=== PATIENT | female | born 1960 | race Caucasian/White ===

== ENCOUNTER 2017-05-28 20:27 | Observation (INO) | payer MEDICARE, OTHER ==
[~2017-05-28] VITALS: Ht 165.1 cm; Wt 56.0 kg
[~2017-05-28 20:27] MED LIST: ALBU6.7H INH; CEFU1TAB20 OR; DOXY100T PO; GUAI400T8 PO; HYDR200T42 PO; LISI-363 PO; MEDR4PAK3 PO; PRED5TAB PO; TRAM50TA PO
[2017-05-28 20:30] VITALS: BP 162/78; PULSE 77; RESP 16; TEMP 98.7; O2SAT 99
[2017-05-28] MEDS ORDERED: HYDR200T3 PO (20:52)
[2017-05-28] MEDS ORDERED: GABA300C5 PO (20:52)
[2017-05-28] MEDS ORDERED: DICL50TA3 PO (20:52)
[2017-05-28] MEDS ORDERED: BACT800T5 PO (20:52)
[2017-05-28] MEDS ORDERED: ESCI20TA PO (20:52)
[2017-05-28] MEDS ORDERED: LISI10TA3 PO (20:52)
--- NOTE | 2017-05-28 20:57 | PD ---
HPI Chief Complaint: Abnormal Results Time Seen by Provider: 21:16 Travel History International Travel<30 days: No Contact w/Intl Traveler<30days: No Traveled to known affect area: No History of Present Illness HPI 57-year-old female presents to the emergency department by private transportation at the recommendation of her primary care provider due to abnormal lab values on her most recent lab tests from her office. Patient states she feels well is voicing no concerns or complaints. Patient has extensive past medical history including hypertension dyslipidemia COPD infrarenal abdominal aortic aneurysm ongoing tobaccoism as well as autoimmune disorder with rheumatoid arthritis Sjogren's syndrome polymyalgia rheumatica. Patient denies fever chills headache visual disturbance nausea or vomiting chest pain shortness of breath abdominal pain back pain and new joint or extremity pain or swelling. Patient states she has been treated for rhabdomyolysis in the past. Patient had elevated CK and was encouraged come to the emergency room. Patient's had no recent increased exertion muscle pain and no history of statin use. 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 rheumatoid arthritis polymyositis Sjogren's syndrome polymyalgia rheumatica cervical spine and lumbar radiculopathy with degenerative disc disease and osteoporosis chronic kidney disease osteoporosis dysphagia Arthritis: Yes Anxiety: Yes Cardiovascular Problems: Yes (AAA) High Cholesterol: Yes COPD: Yes Diminished Hearing: No Gastrointestinal Disorders: Yes (IBS) Genitourinary: Yes (CKD stg II) Hypertension: Yes Immune Disorder: Yes (LUPUS) Medical other: Yes (Molymyalgia, Sjogrens Syndrome) Musculoskeletal: Yes (Osteoporosis, R) Neurologic: Yes (neuropathy, tinnitus) Respiratory: Yes Immunizations Current: Yes Pneumonia: Yes Tetanus Vaccination: Unknown Influenza Vaccination: No ?: Not Menopausal: Yes Past Surgical History Appendectomy: Yes (2002) Section: Yes Social History Alcohol Use: No Tobacco Use: Yes (1 PPD) Substance Use: No Allergies-Medications (Allergen,Severity, Reaction): Coded Allergies: azithromycin (Unverified Allergy, Mild, numb, 05/28/17) codeine (Unverified Allergy, Mild, sick and dizzy, 05/28/17) erythromycin base (Unverified Allergy, Mild, numb, 05/28/17) Reported Meds & Prescriptions Reported Meds & Active Scripts Active Reported Lisinopril 10 Mg Tab 10 Mg PO DAILY Hydroxychloroquine (Hydroxychloroquine Sulfate) 200 Mg Tab 200 Mg PO DAILY Takw with food Diclofenac Sodium DR (Diclofenac Sodium) 50 Mg Tabdr 50 Mg PO BID Gabapentin 300 Mg Cap 300 Mg PO TID Escitalopram (Escitalopram Oxalate) 20 Mg Tab 20 Mg PO DAILY Review of Systems Except as stated in HPI: all other systems reviewed are Neg General / Constitutional: No: Fever, Chills HENT: No: Headaches, Congestion, Neck Pain Cardiovascular: No: Chest Pain or Discomfort, Diaphoresis Respiratory: No: Shortness of Breath Gastrointestinal: No: Nausea, Vomiting, Abdominal Pain Genitourinary: No: Decreased Urinary Output, Flank Pain Musculoskeletal: No: Myalgias, Arthralgias Skin: No Rash Neurologic: No: Weakness Psychiatric: No: Anxiety, Depression Endocrine: No: Heat Intolerance Hematologic/Lymphatic: No: Easy Bruising Physical Exam Narrative GENERAL: Well-developed well-nourished female in no acute distress no respiratory distress SKIN: Warm and dry. HEAD: Normocephalic. EYES: No scleral icterus. No injection or drainage. NECK: Supple, trachea midline. No JVD or lymphadenopathy. CARDIOVASCULAR: Regular rate and rhythm without murmurs, gallops, or rubs. RESPIRATORY: Breath sounds equal bilaterally. No accessory muscle use. GASTROINTESTINAL: Abdomen soft, non-tender, nondistended. MUSCULOSKELETAL: No cyanosis, or edema. BACK: Nontender without obvious deformity. No CVA tenderness. Data Data Last Documented VS Vital Signs Date Time Temp Pulse Resp B/P (MAP) Pulse Ox O2 Delivery O2 Flow Rate FiO2 05/28/17 23:38 63 14 100/53 (69) 98 Room Air 05/28/17 20:30 98.7 Orders Orders Electrocardiogram (05/28/17 21:02) Basic Metabolic Panel (Bmp) (05/28/17 21:29) Ckmb (Isoenzyme) Profile (05/28/17 21:29) Complete Blood Count With Diff (05/28/17 21:29) Magnesium (Mg) (05/28/17 21:29) Prothrombin Time / Inr (Pt) (05/28/17 21:29) Act Partial Throm Time (Ptt) (05/28/17 21:29) Troponin I (05/28/17 21:29) Chest, Single Ap (05/28/17 21:29) Ecg Monitoring (05/28/17 21:29) Bilateral Bp Monitoring (05/28/17 21:29) Iv Access Insert/Monitor (05/28/17 21:29) Oximetry (05/28/17 21:29) Oxygen Administration (05/28/17 21:29) Sodium Chloride 0.9% Flush (Ns Flush) (05/28/17 21:30) Urinalysis - C+S If Indicated (05/28/17 21:29) CKMB (05/28/17 21:10) CKMB% (05/28/17 21:10) Admit Order (Ed Use Only) (05/29/17 ) ^ Saline Lock (05/29/17 00:16) Resp Oxygen Virgilio C Titrat 1-4 L (05/29/17 ) Notify Dr: Other (05/29/17 00:16) Sodium Chloride 0.9% Flush (Ns Flush) (05/29/17 09:00) Sodium Chloride 0.9% Flush (Ns Flush) (05/29/17 00:30) Labs Laboratory Tests Test 05/28/17 21:10 White Blood Count 4.8 TH/MM3 Red Blood Count 3.72 MIL/MM3 Hemoglobin 11.6 GM/DL Hematocrit 34.2 % Mean Corpuscular Volume 91.9 FL Mean Corpuscular Hemoglobin 31.2 PG Mean Corpuscular Hemoglobin Concent 34.0 % Red Cell Distribution Width 13.6 % Platelet Count 154 TH/MM3 Mean Platelet Volume 7.7 FL Neutrophils (%) (Auto) 44.9 % Lymphocytes (%) (Auto) 44.9 % Monocytes (%) (Auto) 7.3 % Eosinophils (%) (Auto) 2.1 % Basophils (%) (Auto) 0.8 % Neutrophils # (Auto) 2.2 TH/MM3 Lymphocytes # (Auto) 2.1 TH/MM3 Monocytes # (Auto) 0.3 TH/MM3 Eosinophils # (Auto) 0.1 TH/MM3 Basophils # (Auto) 0.0 TH/MM3 CBC Comment DIFF FINAL Differential Comment Prothrombin Time 10.7 SEC Prothromb Time International Ratio 1.0 RATIO Activated Partial Thromboplast Time 25.7 SEC Urine Color YELLOW Urine Turbidity HAZY Urine pH 5.5 Urine Specific [place] 1.013 Urine Protein TRACE mg/dL Urine Glucose (UA) NEG mg/dL Urine Ketones NEG mg/dL Urine Occult Blood NEG Urine Nitrite NEG Urine Bilirubin NEG Urine Urobilinogen LESS THAN 2.0 MG/DL Urine Leukocyte Esterase MOD Urine WBC 3 /hpf Urine Squamous Epithelial Cells 3 /hpf Urine Hyaline Casts 9 /lpf Microscopic Urinalysis Comment CULT NOT INDICATED Blood Urea Nitrogen 19 MG/DL Creatinine 1.35 MG/DL Random Glucose 96 MG/DL Calcium Level 9.1 MG/DL Magnesium Level 2.5 MG/DL Sodium Level 133 MEQ/L Potassium Level 4.1 MEQ/L Chloride Level 102 MEQ/L Carbon Dioxide Level 23.1 MEQ/L Anion Gap 8 MEQ/L Estimat Glomerular Filtration Rate 40 ML/MIN Total Creatine Kinase 1950 U/L Creatine Kinase MB 6.3 NG/ML Creatine Kinase MB % 0.3 % Troponin I LESS THAN 0.02 NG/ML MDM Medical Decision Making Medical Screen Exam Complete: Yes Emergency Medical Condition: Yes Medical Record Reviewed: Yes Interpretation(s) EKG normal sinus rhythm rate 80 with ventricular trigeminy patient does show T- wave inversion with mild ST segment flattening/depression anteroseptally Differential Diagnosis Abnormal lab values, rhabdomyolysis, electronic disturbance, renal insufficiency /failure Narrative Course 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 access obtained specimens collected and sent for resulting Patient with elevated CK; urinalysis no occult blood or rbc's; metabolic panel mild renal insufficiency Patient administered IV fluids Patient's case discussed with on-call [facility] hospitalists for admission for ongoing IV fluid hydration and follow-up of pending CK's Physician Communication Physician Communication discussed with Dr Gauthier for admission Diagnosis Primary Impression: Rhabdomyolysis Qualified Codes: M62.82 - Rhabdomyolysis Admitting Information Admitting Physician Requests: Observation Kira Hayes MD May 28, 2017 20:57
[2017-05-28] MEDS ORDERED: SODIUM CHLORIDE 0.9% FLUSH 10 ML FLUSH IVF PRN (21:30)
--- NOTE | 2017-05-28 21:48 | RADRPT ---
EXAM DATE/TIME: 05/28/2017 21:30 [place] COMPARISON: No previous studies available for comparison. INDICATIONS : Short of breath. MEDICAL HISTORY : Hypertension. SURGICAL HISTORY : None. ENCOUNTER: Initial ACUITY: 1 day PAIN SCORE: 0/10 LOCATION: Bilateral chest FINDINGS: A single view of the chest demonstrates the lungs to be symmetrically aerated without evidence of mas s, infiltrate or effusion. The cardiomediastinal contours are unremarkable. Osseous structures are intact. CONCLUSION: No acute disease. Zoran Alvarez MD on May 28, 2017 at 21:46 Board Certified Radiologist. This report was verified electronically.
[2017-05-28 21:54] LABS: AUTOMATED NEUTROPHIL # 2.2 TH/MM3 (1.8-7.7); BASOPHIL % 0.8 % (0.0-2.0); EOSINOPHIL # 0.1 TH/MM3 (0-0.4); EOSINOPHIL % 2.1 % (0.0-4.0); HEMATOCRIT 34.2 % (35.0-46.0); HEMO FLAGS DIFF FINAL; LYMPH % 44.9 % (9.0-44.0); LYMPHOCYTE # 2.1 TH/MM3 (1.0-4.8); MEAN CELL VOLUME 91.9 FL (80.0-100.0); MEAN CORPUSCULAR HEMOGLOBIN 31.2 PG (27.0-34.0); MONO % 7.3 % (0.0-8.0); NEUT % 44.9 % (16.0-70.0); PLATELET COUNT 154 TH/MM3 (150-450); RED BLOOD COUNT 3.72 MIL/MM3 (4.00-5.30); RED CELL DISTRIBUTION WIDTH 13.6 % (11.6-17.2); WHITE BLOOD COUNT 4.8 TH/MM3 (4.0-11.0)
[2017-05-28 21:55] VITALS: BP 129/63; PULSE 76; RESP 16; O2SAT 95
[2017-05-28 22:03] LABS: APTT (PATIENT) 25.7 SEC (24.3-30.1); PROTHROMBIN TIME - PATIENT 10.7 SEC (9.8-11.6)
[2017-05-28 22:08] LABS: BLOOD, URINE NEG (NEG); COMMENT (UR) CULT NOT INDICATED; CULTURE IF INDICATED CULT NOT INDICATED; GLUCOSE,URINE NEG (NEG); HYALINE CAST, URINE 9 /lpf (RARE); KETONE, URINE NEG (NEG); NITRITE,URINE NEG (NEG); PH, URINE 5.5 (5.0-8.5); SQUAMOUS EPITHELIAL CELL URINE 3 /hpf (0-5); URINE COLOR YELLOW (YELLW/STRAW)
[2017-05-28 22:15] LABS: ANION GAP 8 MEQ/L (5-15); BICARBONATE 23.1 MEQ/L (21.0-32.0); BLOOD UREA NITROGEN 19 MG/DL (7-18); CHLORIDE 102 MEQ/L (98-107); GLOMERULAR FILTRATION RATE 40 ML/MIN (>89); MAGNESIUM 2.5 MG/DL (1.5-2.5); POTASSIUM 4.1 MEQ/L (3.5-5.1); SODIUM (NA) 133 MEQ/L (136-145)
[2017-05-28 22:50] LABS: CREATINE KINASE 1950 U/L (26-192)
[2017-05-28 23:05] LABS: CKMB 6.3 NG/ML (0.5-3.6)
[2017-05-28 23:38] VITALS: BP 100/53; PULSE 63; RESP 14; O2SAT 98
[2017-05-29] VITALS (7 sets, daily range): BP systolic 102–120; BP diastolic 55–66; PULSE 56–65; RESP 17–18; TEMP 97.8–98.2; O2SAT 95–98
[2017-05-29] MEDS ORDERED: SODIUM CHLORIDE 0.9% FLUSH 10 ML FLUSH IVF PRN (00:30)
[2017-05-29] MEDS ORDERED: ACETAMINOPHEN 325 MG TAB PO ONE (00:30)
[2017-05-29] MEDS ORDERED: ONDANSETRON HCL 4 MG/2 ML VIAL IV PRN (00:45)
[2017-05-29] MEDS ORDERED: ACETAMINOPHEN 325 MG TAB PO PRN (00:45)
[2017-05-29] MEDS ORDERED: MORPHINE SULFATE 4 MG/ML INJ IV PRN (00:45)
[2017-05-29] MEDS: SODIUM CHLOR 0.9% 1000 ML INJ 1,000 ML IV SCH ×2 (00:47→11:33)
[2017-05-29] MEDS ORDERED: SODIUM CHLORIDE 0.9% FLUSH 10 ML FLUSH IV FLUSH SCH (09:00)
[2017-05-29] MEDS ORDERED: HEPARIN SODIUM - SQ 10,000 UNITS/ML VIAL SQ SCH (09:00)
[2017-05-29] MEDS ORDERED: FAMOTIDINE 20 MG TAB PO SCH (09:00)
--- NOTE | 2017-05-29 10:20 | HHI.HP ---
HPI Service [facility] Primary Care Physician Maurizio Leal MD Admission Diagnosis rhabdomyolysis; ventricular trigeminy Diagnoses: Chief Complaint: Leg cramping Travel History International Travel<30 Days: No Contact w/Intl Traveler <30 Da: No Traveled to Known Affected Are: No History of Present Illness 57-year-old female with past medical history of lupus, PMR, Sjogren's syndrome, HTN, anxiety, chronic neck pain who was sent by her PCP for elevated CPK. Patient states she saw her PCP earlier this week due to lower back and left leg cramping. She states she was diagnosed with a UTI and placed on Bactrim and ordered for routine labs. She states that after starting the Bactrim her symptoms significantly improved. Her PCP called her yesterday and stated to go to the hospital because her labs showed rhabdomyolysis. The patient was found to have a CPK of 2000 in the ED. She has noticed her urine output has been a little bit decreased lately. She doesn't have any chronic kidney disease that she is aware of. She does have some mild left calf cramping. She did have a history of rhabdomyolysis back in 2002. She denies any excessive activity or exposure to heat. The patient said that she felt better after starting Bactrim for her UTI. She said she came into the hospital because she was told she had abnormal lab results. She is currently anxious to go home. Review of Systems Except as stated in HPI: all other systems reviewed are Neg Past Family Social History Past Medical History Lupus Polymyalgia rheumatica Troponin syndrome Chronic neck pain with patch nerves Hypertension Anxiety History of aneurysm in her neck Past Surgical History Appendectomy Reported Medications Reported Lisinopril 10 Mg Tab 10 Mg PO DAILY Hydroxychloroquine (Hydroxychloroquine Sulfate) 200 Mg Tab 200 Mg PO DAILY Takw with food Diclofenac Sodium DR (Diclofenac Sodium) 50 Mg Tabdr 50 Mg PO BID Bactrim DS (Sulfamethoxazole-Trimethoprim) 800-160 Mg Tab 1 Tab PO BID Gabapentin 300 Mg Cap 300 Mg PO TID Escitalopram (Escitalopram Oxalate) 20 Mg Tab 20 Mg PO DAILY Allergies: Coded Allergies: azithromycin (Unverified Allergy, Mild, numb, 05/28/17) codeine (Unverified Allergy, Mild, sick and dizzy, 05/28/17) erythromycin base (Unverified Allergy, Mild, numb, 05/28/17) Active Ordered Medications Current Medications Medications (Trade) Dose Ordered Sig/Monique Route Start Time Stop Time Status Last Admin (NS Flush) 2 ml BID IV FLUSH 05/29/17 09:00 (NS Flush) 2 ml UNSCH PRN IVF 05/29/17 00:30 Sodium Chloride 1,000 ml @ 125 mls/hr Q8H IV 05/29/17 00:45 05/29/17 00:47 (Heparin Inj) 5,000 units Q12HR SQ 05/29/17 09:00 (Pepcid) 10 mg BID PO 05/29/17 09:00 05/29/17 08:54 (Tylenol) 650 mg QID PRN PO 05/29/17 00:45 05/29/17 05:24 (Morphine Inj) 2 mg Q6H PRN IV 05/29/17 00:45 (Zofran Inj) 4 mg Q6H PRN IV 05/29/17 00:45 (Pneumovax-23 Inj) 25 mcg ONCE ONCE IM 05/30/17 10:00 05/30/17 10:01 (Flu (Quadrivalent) Vaccine Inj) 0.5 ml ONCE ONCE IM 05/30/17 10:00 05/30/17 10:01 Family History Mother has dementia Social History Tobacco use, previously 2 packs per day, down to 10 cigarettes daily No alcohol use Physical Exam Vital Signs Vital Signs Date Time Temp Pulse Resp B/P (MAP) Pulse Ox O2 Delivery O2 Flow Rate FiO2 05/29/17 09:18 58 05/29/17 08:53 18 05/29/17 07:28 96 21 05/29/17 05:26 18 05/29/17 01:15 98.0 65 17 102/55 (71) 98 05/29/17 00:44 05/29/17 00:29 98 05/28/17 23:38 63 14 100/53 (69) 98 Room Air 05/28/17 21:55 76 16 129/63 (85) 95 Room Air 05/28/17 20:30 98.7 77 16 162/78 (106) 99 Room Air Physical Exam GENERAL: Well-developed well-nourished. In no acute distress. SKIN: Warm and dry. No lesions noted. HEENT: Normocephalic. Pupils equal and round. Mucous membranes pink and moist. CARDIOVASCULAR: Regular rate and rhythm. No murmur appreciated. RESPIRATORY: No accessory muscle use. Clear to auscultation. Breath sounds equal bilaterally. GASTROINTESTINAL: Abdomen soft, non-tender, nondistended. Bowel sounds x4. MUSCULOSKELETAL: No obvious deformities. No clubbing or cyanosis. No edema. NEUROLOGICAL: Awake and alert. No focal neurological deficits. Moves upper and lower extremities spontaneously. Normal speech. PSYCHIATRIC: Appropriate mood and affect; insight and judgment normal. Laboratory Laboratory Tests Test 05/28/17 21:10 05/29/17 08:36 White Blood Count 4.8 Red Blood Count 3.72 Hemoglobin 11.6 Hematocrit 34.2 Mean Corpuscular Volume 91.9 Mean Corpuscular Hemoglobin 31.2 Mean Corpuscular Hemoglobin Concent 34.0 Red Cell Distribution Width 13.6 Platelet Count 154 Mean Platelet Volume 7.7 Neutrophils (%) (Auto) 44.9 Lymphocytes (%) (Auto) 44.9 Monocytes (%) (Auto) 7.3 Eosinophils (%) (Auto) 2.1 Basophils (%) (Auto) 0.8 Neutrophils # (Auto) 2.2 Lymphocytes # (Auto) 2.1 Monocytes # (Auto) 0.3 Eosinophils # (Auto) 0.1 Basophils # (Auto) 0.0 CBC Comment DIFF FINAL Differential Comment Prothrombin Time 10.7 Prothromb Time International Ratio 1.0 Activated Partial Thromboplast Time 25.7 Urine Color YELLOW Urine Turbidity HAZY Urine pH 5.5 Urine Specific [place] 1.013 Urine Protein TRACE Urine Glucose (UA) NEG Urine Ketones NEG Urine Occult Blood NEG Urine Nitrite NEG Urine Bilirubin NEG Urine Urobilinogen LESS THAN 2.0 Urine Leukocyte Esterase MOD Urine WBC 3 Urine Squamous Epithelial Cells 3 Urine Hyaline Casts 9 Microscopic Urinalysis Comment CULT NOT INDICATED Blood Urea Nitrogen 19 Creatinine 1.35 Random Glucose 96 Calcium Level 9.1 Magnesium Level 2.5 Sodium Level 133 Potassium Level 4.1 Chloride Level 102 Carbon Dioxide Level 23.1 Anion Gap 8 Estimat Glomerular Filtration Rate 40 Total Creatine Kinase 1950 Creatine Kinase MB 6.3 Creatine Kinase MB % 0.3 Troponin I LESS THAN 0.02 Result Diagram: 05/28/17210905/28/172109 Imaging Last Impressions Chest X-Ray 05/28/172128 Signed Impressions: Service Date/Time: Sunday, May 28, 2017 21:30 - CONCLUSION: No acute disease. MD Chely Ramos VTE Risk Assessment [place]ren[place] VTE Risk Assessment: Mod/High Risk (score >= 2) Caprini Risk Assessment Model Point Value = 1 Point Value = 2 Point Value = 3 Point Value = 5 Age 41-60 Minor surgery BMI > 25 kg/m2 Swollen legs Varicose veins or History of unexplained or recurrent spontaneous Oral contraceptives or hormone replacement Sepsis (< 1 month) Serious lung disease, including pneumonia (< 1 month) Abnormal pulmonary function Acute myocardial infarction Congestive heart failure (< 1 month) History of inflammatory bowel disease Medical patient at bed rest Age 61-74 Arthroscopic surgery Major open surgery (> 45 min) Laparoscopic surgery (> 45 min) Malignancy Confined to bed (> 72 hours) Immobilizing plaster cast Central venous access Age >= 75 History of VTE Family history of VTE Factor V Leiden Prothrombin [id number] Lupus anticoagulant Anticardiolipin antibodies Elevated serum homocysteine Heparin-induced thrombocytopenia Other congenital or acquired thrombophilia Stroke (< 1 month) Elective arthroplasty Hip, pelvis, or leg fracture Acute spinal cord injury (< 1 month) Prophylaxis Regimen Total Risk Factor Score Risk Level Prophylaxis Regimen 0-1 Low Early ambulation 2 Moderate Order ONE of the following: *Sequential Compression Device (SCD) *Heparin 5000 units SQ BID 3-4 Higher Order ONE of the following medications: *Heparin 5000 units SQ TID *Enoxaparin/Lovenox 40 mg SQ daily (WT < 150 kg, CrCl > 30 mL/min) *Enoxaparin/Lovenox 30 mg SQ daily (WT < 150 kg, CrCl > 10-29 mL/min) *Enoxaparin/Lovenox 30 mg SQ BID (WT < 150 kg, CrCl > 30 mL/min) AND/OR *Sequential Compression Device (SCD) 5 or more Highest Order ONE of the following medications: *Heparin 5000 units SQ TID (Preferred with Epidurals) *Enoxaparin/Lovenox 40 mg SQ daily (WT < 150 kg, CrCl > 30 mL/min) *Enoxaparin/Lovenox 30 mg SQ daily (WT < 150 kg, CrCl > 10-29 mL/min) *Enoxaparin/Lovenox 30 mg SQ BID (WT < 150 kg, CrCl > 30 mL/min) AND *Sequential Compression Device (SCD) Assessment and Plan Assessment and Plan 57-year-old female with past medical history of lupus, PMR, Sjogren's syndrome, HTN, anxiety, chronic neck pain who was sent by her PCP for elevated CPK Rhabdomyolysis: CPK 1950. Possibly etiologies include medication effect from Bactrim, polymyositis, other. Continue aggressive IVF. Repeat CPK pending. Improving with hydration. Possibly related to Bactrim use or polymyositis. Continue IV fluids. Repeat levels. Discontinue Bactrim. LASHA: Creatinine 1.35, previously 0.72 on 05/01/12. IVF as above. Repeat BMP pending. Hold diclofenac and lisinopril for now. Continue IV fluid hydration. Hold above medications for now. Recent UTI: Urinary symptoms have improved and UA shows no further evidence of UTI. Hold Bactrim as this may worsen rhabdomyolysis as above. Monitor. Other chronic medical conditions include Sjogren's syndrome, PMR, lupus, anxiety : Stable at this time and will continue home medications as needed. Tylenol as needed for chronic neck pain. DVT prophylaxis: Heparin Disposition: The patient reports minimal symptoms and wants to go home today. Continue aggressive IVF and repeat labs later this afternoon. Addendum 1650: Renal function has returned to normal limits. CPK continues to trend down. Discharge home today and continue oral hydration at home. Discussed Condition With Patient, Dr. Batista Attending Statement The exam, history, and the medical decision-making described in the above note were completed with the assistance of the mid-level provider. I reviewed and agree with the findings presented. I attest that I had a [id number] encounter with the patient on the same day, and personally performed and documented my assessment and findings in the medical record. Jerson Kay May 29, 2017 10:20 Spencer Batista DO May 29, 2017 14:34
[2017-05-29 10:48] LABS: BICARBONATE 21.1 MEQ/L (21.0-32.0); POTASSIUM 5.1 MEQ/L (3.5-5.1)
[2017-05-29] MEDS ORDERED: HYDROXYCHLOROQUINE SULFATE 200 MG TAB PO SCH (11:00)
[2017-05-29] MEDS ORDERED: ESCITALOPRAM OXALATE 20 MG TAB PO SCH (11:00)
[2017-05-29 11:17] LABS: CKMB 4.1 NG/ML (0.5-3.6)
[2017-05-29] MEDS ORDERED: GABAPENTIN 300 MG CAP PO SCH (13:00)
[2017-05-29 16:30] LABS: BICARBONATE 25.3 MEQ/L (21.0-32.0); POTASSIUM 4.4 MEQ/L (3.5-5.1)
--- NOTE | 2017-05-29 17:06 | EKG ---
Date Performed: 05/28/2017 Time Performed: 21:02:27 PTAGE: 57 years EKG: Sinus rhythm WITH FREQUENT VENTRICULAR PREMATURE COMPLEXES INCOMPLETE RIGHT BUNDLE BRANCH BLOCK NONSPECIFIC T-WAV E CHANGE SINCE PREVIOUS TRACING 05/01/2012, THE PVC'S AND T-WAVE CHANGES, AND INCOMPLETE RBBB ARE NEW. ABNORMAL ECG PREVIOUS TRACING : 05/01/2012 12.12 DOCTOR: Familia Riggins Interpretating Date/Time 05/29/2017 17:06:08
[2017-05-30] MEDS ORDERED: INFLUENZA VIRUS VACCINE (QUADRIVALENT) 0.5 ML SYR IM ONE (10:00)
[2017-05-30] MEDS ORDERED: PNEUMOCOCCAL POLYVALENT INJ 25 MCG/0.5 ML SYR IM ONE (10:00)
== END 2017-05-29 19:07 | disposition home or self-care (01) ==
LOC: NEPC 20:27 → NEDA 05-29 00:19 → NEPGCP 05-29 00:49
PROVIDERS: ADMIT Hospitalist; ATTEND Hospitalist
DX: M62.82 Rhabdomyolysis (principal); R74.8 Abnormal levels of other serum enzymes; I10 Essential (primary) hypertension; M35.00 Sjogren syndrome, unspecified; M54.2 Cervicalgia; G89.29 Other chronic pain; R94.31 Abnormal electrocardiogram [ECG] [EKG]; R06.02 Shortness of breath
CPT/HCPCS: 71010; 80048; 81001; 82550; 82552; 83735; 84484; 85025; 85610; 85730; 93005; 96361; 96374; 99285; G0378; J2270; J7030

== ENCOUNTER → 2017-10-19 | Day surgery (SDC) | payer OTHER, MEDICAID ==
[~2017-10-19] MED LIST changes: -ALBU6.7H INH; -CEFU1TAB20 OR; -DOXY100T PO; +GABA300C5 PO; -GUAI400T8 PO; +HYDR200T3 PO; -HYDR200T42 PO; +KETOROLAC TROMETHAMINE 30 MG/ML (IVP) VIAL IV PUSH ONE; +LACTATED RINGER'S 1000 ML INJ 1,000 ML ONE; -LISI-363 PO; +LISI10TA3 PO; -MEDR4PAK3 PO; +MIDAZOLAM HCL 2 MG/2 ML VIAL ONE; +ONDANSETRON HCL 4 MG/2 ML VIAL IV PUSH ONE; -PRED5TAB PO; +PROPOFOL 200 MG/20 ML AMP IV ONE; +SODIUM CHLORIDE 0.9% INJ 10 ML ONE; -TRAM50TA PO
--- NOTE | 2017-10-19 14:05 | TN ---
cc: MARITZA KAMARA M.D., DR., LEON RUELAS MD DATE OF SURGERY 10/19/2017 PREOPERATIVE DIAGNOSIS Bilateral calf pain and weakness. POSTOPERATIVE DIAGNOSES Bilateral calf pain and weakness. PROCEDURE Left calf muscle biopsy. SURGEON Dr. Maritza Kamara [employer] Edithfaheem Martinezdavid, MS3. ANESTHESIA General with laryngeal mask. INDICATIONS This is a very pleasant 57-year-old woman sent to me in consultation by Dr. Lehman for evaluation of a calf muscle biopsy. The patient has a long history of polymyositis, lupus and fibromyalgia, has been experiencing increasing episodes of severe muscle cramps that start in her calves and go up. MRI demonstrated some edema within the gastrocnemius muscle and soleus muscles. She indicates her symptoms are worse on the left than the right. INTRAOPERATIVE FINDINGS Successful removal of an approximately 2-3 cm segment of left gastrocnemius muscle, sent to pathology fresh for evaluation. ESTIMATED BLOOD LOSS Less than 2 mL. DESCRIPTION OF PROCEDURE IN DETAIL The patient was identified as Sheridan Rocha, taken to the operating room and placed in supine position. Following induction of adequate general anesthesia with a laryngeal mask, the left leg was prepped and draped in the usual sterile fashion with Betadine in a frog-leg position. Time-out procedure was performed. Following completion of the time-out procedure to everyone's satisfaction within the room, the proposed longitudinal incision was made with a marking pen and infiltrated local anesthetic. The incision was carried out with scalpel and dissection continued posteriorly using electrocautery through subcutaneous fatty tissue until the fascia of the gastrocnemius muscle was identified. More local anesthetic was placed beneath the fascial fibers. They were opened in their direction with a scalpel and Metzenbaum scissor. An underlying segment of muscle about 2 cm wide, 2-3 cm in length was from surrounding muscular tissue using hemostats, clamped proximally and distally and the intervening segment excised with a scalpel. This was passed off the field fresh for pathologic evaluation. The proximal and distal ends were suture ligated with 2-0 Vicryl suture ligatures. The wound was irrigated copiously with saline. There was no evidence of bleeding. Local anesthetic was used as irrigant as well. The fascia layer was closed with a running 2-0 Vicryl suture. The 3-0 Vicryl was placed in the deep dermis and subcutaneous tissue and running 4-0 Monocryl placed in the subcuticular position in the skin. Dressings were applied with Mastisol and 1/2-inch brown Steri-Strips, gauze and Abelino with tape. The patient tolerated the procedure without apparent complication. Sponge, needle and instrument counts were correct at the end of the case. MD MICKI Montes/MARCO A /1:45 PM /1:52 PM
== END | disposition home or self-care (01) ==
LOC: ESDC 11:28
PROVIDERS: ATTEND Surgery Trauma Surgery
DX: M62.81 Muscle weakness (generalized) (principal); M79.7 Fibromyalgia
CPT/HCPCS: 01470; 20205; J1885; J2250; J2405; J3010; J7120

== ENCOUNTER 2018-06-25 11:40 | Inpatient (IN) ==
--- NOTE | 2018-06-25 12:16 | ED ---
HPI General Chief complaint: Abdominal Pain Stated complaint: Evac/abd pain Time Seen by Provider: 06/25/18 12:01 Source: patient Mode of arrival: EMS Limitations: no limitations History of Present Illness HPI narrative: Patient evaluated overnight for swelling and tenderness to her calf muscles bilaterally. General malaise. Feels weak. Recently taken off methotrexate due to liver cirrhosis now reports gradual resumption of pain. Patient care was transferred to Dr. Govea this morning. Please see previous note. Patient was diagnosed with rhabdomyolysis with a CK of 14,000. History of bilateral dry eye syndrome, lupus and polymyositis. Patient was encouraged to be admitted this morning however left AGAINST MEDICAL ADVICE. Encouraged to return to the emergency room with any onset of new symptoms. Patient presents via ambulance and states states that she just cannot take it at home. Attempted fluids with poor response. Denies nausea or vomiting. Denies any new chest pain shortness of breath urinary or bowel symptoms. Related Data Home Medications Medication Instructions Recorded Confirmed cyclobenzaprine 5 mg PO QPM 06/25/18 06/25/18 gabapentin 300 mg PO TID 06/25/18 06/25/18 hydroxychloroquine [Plaquenil] 200 mg PO DAILY 06/25/18 06/25/18 naproxen sodium [Aleve] 220 mg PO BID PRN 06/25/18 06/25/18 prednisone 5 mg PO DAILY PRN 06/25/18 06/25/18 Allergies Allergy/AdvReac Type Severity Reaction Status Date / Time azithromycin Allergy Mild numb Verified 06/25/18 11:45 codeine Allergy Mild Itching Verified 06/25/18 11:45 erythromycin base Allergy Mild numb Verified 06/25/18 11:45 Review of Systems ROS: all other systems reviewed are negative [facility] Medical History Medical History AAA (abdominal aortic aneurysm) (Acute) Cirrhosis of liver (Acute) Cubital tunnel syndrome on left (Acute) Dry eye syndrome of both eyes (Acute) Lupus (Acute) Normal colonoscopy (Acute) Osteoporosis (Acute) Polymyositis (Acute) Surgical History Surgical History History of delivery (Acute) Social History Social History Substance History: No History of Abuse Smoking Status: Current every day smoker Tobacco Type: Cigarettes How Often Do You Have a Drink Containing Alcohol: Never Recent Travel in [place] within the Last 8 Weeks: No Recent Out of Country Travel within the Last 8 Weeks: No Immunization History Tetanus Immunization: >5 Years Exam Narrative Exam Narrative: CARDIOVASCULAR: Regular rate and rhythm without murmurs, gallops , or rubs. RESPIRATORY: Breath sounds equal bilaterally. No accessory muscle use. GASTROINTESTINAL: Abdomen soft, normal bowel sounds, non-tender, nondistended. MUSCULOSKELETAL: No cyanosis, or edema. BACK: Nontender without obvious deformity. No CVA tenderness. Course Initial Documented Vital Signs Temperature 97.9 F 06/25/18 11:40 Pulse Rate 92 H 06/25/18 11:40 Respiratory Rate 14 06/25/18 11:40 Blood Pressure 148/103 H 06/25/18 11:40 Pulse Oximetry 97 06/25/18 11:40 Last Documented Vital Signs Temperature 97.9 F 06/25/18 11:40 Pulse Rate 92 H 06/25/18 11:40 Respiratory Rate 14 06/25/18 11:40 Blood Pressure 148/103 H 06/25/18 11:40 Pulse Oximetry 97 06/25/18 11:40 Medical Decision Making MDM Narrative Medical decision making narrative: Spoke with Dr. Dsouza who is in agreement will admit with IV fluids and repeat labs. Medical Screen Exam Complete: Yes Emergency Medical Condition: Yes Differential Diagnosis Differential Diagnosis: Rhabdomyolysis, autoimmune disorder, cirrhosis, myalgias , myositis Medical Records Medical records reviewed: Yes I reviewed the patient's medical records. Lab Data Lab results reviewed: Yes I reviewed the patient's lab results. Lab results narrative: See previous labs Discharge Plan Discharge Disposition Patient Disposition: 30 Still Patient Discharge Condition Condition: Fair Discharge Details Diagnosis: Rhabdomyolysis Physicians Team ED Provider: Boyd Hernández Rxs /Orders / Referrals /Forms Prescriptions: No Action prednisone 5 mg Tablet 5 mg PO DAILY PRN (Reason: Acute Pain) RF: 0 naproxen sodium [Aleve] 220 mg Tablet 220 mg PO BID PRN (Reason: Acute Pain) RF: 0 gabapentin 300 mg Capsule 300 mg PO TID RF: 0 hydroxychloroquine [Plaquenil] 200 mg Tablet 200 mg PO DAILY RF: 0 cyclobenzaprine 5 mg Tablet 5 mg PO QPM RF: 0 Status ED Status: With Doctor
[2018-06-25] MEDS ORDERED: Sod Chloride 0.9% Inj 1,000 ML IV.SIG SCH (12:30)
[2018-06-25] MEDS ORDERED: predniSONE 5 MG Tablet PO PRN (12:30)
--- NOTE | 2018-06-25 12:39 | P.HPIM ---
History of Present Illness Primary Care Physician: Joyce Jose MD Chief Complaint: muscle pain History of Present Illness: patient is a 58 y/o female with history of lupus,RA, neuropathy, cirrhosis who presented to ER with muscle pain. she says that she was taken off her methotrexate about a month ago because of cirrhosis. she says that she's had some muscle pain to both upper and lower extremities for the past few weeks but it's more intense in the calves. she denies any recent fall. she was seen in ER earlier today but signed out. she says that she couldn't take the pain and she decided to come back to ER.she denies any other symptoms including chest pain sob, abdominal pain, nausea. Review of Systems All other systems reviewed negative except as stated in HPI PMFSH - History History Provided By: Patient, Medical Record - Medical History Medical History: Medical History (Last Reviewed 06/25/18 @ 12:35 by Laura Dsouza MD) AAA (abdominal aortic aneurysm) Cirrhosis of liver Cubital tunnel syndrome on left Dry eye syndrome of both eyes Lupus Normal colonoscopy Osteoporosis Polymyositis - Surgical History Surgical History: Surgical History (Last Reviewed 06/25/18 @ 12:35 by Laura Dsouza MD) History of delivery - Family History Family History: Family History (Last Updated 06/25/18 @ 12:35 by Laura Dsouza MD) Other Dementia - Tobacco History Tobacco Use In Past 30 Days: Yes Smoking Status: Current every day smoker Tobacco Type: Cigarettes - Alcohol History How Often Do You Have a Drink Containing Alcohol: Never - Substance Use History Substance History: No History of Abuse - Travel History Recent Travel in the [place] Within the Last 8 Weeks: No Recent Travel Out of the Country Within the Last 8 Weeks: No - Immunization History Tetanus Immunization: >5 Years Medications and Allergies Active Medications: Active Medications Gabapentin (Neurontin) 300 mg PO TID [facility] Hydroxychloroquine Sulfate (Plaquenil) 200 mg PO DAILY [facility] Sodium Chloride (Ns Inj) 1,000 mls @ 0 mls/hr IV.SIG BOLUS [facility] Last Admin: 06/25/18 12:26 Dose: 1,000 mls/hr Non-Formulary Medication (Cyclobenzaprine [Cyclobenzaprine]) 5 mg PO QPM [facility] Prednisone (Deltasone) 5 mg PO DAILY PRN PRN Reason: Acute Pain Allergies Allergy/AdvReac Type Severity Reaction Status Date / Time azithromycin Allergy Mild numb Verified 06/25/18 11:45 codeine Allergy Mild Itching Verified 06/25/18 11:45 erythromycin base Allergy Mild numb Verified 06/25/18 11:45 Home Medications Medication Instructions Recorded Confirmed Type cyclobenzaprine 5 mg PO QPM 06/25/18 06/25/18 History gabapentin 300 mg PO TID 06/25/18 06/25/18 History hydroxychloroquine [Plaquenil] 200 mg PO DAILY 06/25/18 06/25/18 History naproxen sodium [Aleve] 220 mg PO BID PRN 06/25/18 06/25/18 History prednisone 5 mg PO DAILY PRN 06/25/18 06/25/18 History Exam Vital signs: Vital Signs 06/25/18 11:40 Temperature 97.9 F Pulse Rate 92 H Respiratory Rate 14 Blood Pressure 148/103 H Pulse Oximetry 97 Intake & Output 06/24/18 06/25/18 06/25/18 18:59 06:59 18:59 Weight 56 kg - Constitutional no acute distress - Routine HEENT Exam Eye: Present: PERRL - Routine Neck Exam Present: supple - Routine Respiratory Exam Present: CTA bilaterally - Routine Cardiovascular Exam Present: RRR - Routine Abdominal Exam Present: soft - Routine Extremities Exam Comments: no pedal edema. - Routine Neurological Exam Present: alert, oriented X3 Caprini VTE Risk Assessment Caprini VTE Risk Assessment: Moderate/High Risk (score >= 2) Caprini Risk Assessment Model: Point Value = 1 Point Value = 2 Point Value = 3 Point Value = 5 Age 41-60 Minor surgery BMI > 25 kg/m2 Swollen legs Varicose veins or History of unexplained or recurrent spontaneous Oral contraceptives or hormone replacement Sepsis (< 1 month) Serious lung disease, including pneumonia (< 1 month) Abnormal pulmonary function Acute myocardial infarction Congestive heart failure (< 1 month) History of inflammatory bowel disease Medical patient at bed rest Age 61-74 Arthroscopic surgery Major open surgery (> 45 min) Laparoscopic surgery (> 45 min) Malignancy Confined to bed (> 72 hours) Immobilizing plaster cast Central venous access Age >= 75 History of VTE Family history of VTE Factor V Leiden Prothrombin [id number] Lupus anticoagulant Anticardiolipin antibodies Elevated serum homocysteine Heparin-induced thrombocytopenia Other congenital or acquired thrombophilia Stroke (< 1 month) Elective arthroplasty Hip, pelvis, or leg fracture Acute spinal cord injury (< 1 month) Prophylaxis Regimen: Total Risk Factor Score Risk Level Prophylaxis Regimen 0-1 Low Early ambulation 2 Moderate Order ONE of the following: *Sequential Compression Device (SCD) *Heparin 5000 units SQ BID 3-4 Higher Order ONE of the following medications: *Heparin 5000 units SQ TID *Enoxaparin/Lovenox 40 mg SQ daily (WT < 150 kg, CrCl > 30 mL/min) *Enoxaparin/Lovenox 30 mg SQ daily (WT < 150 kg, CrCl > 10-29 mL/min) *Enoxaparin/Lovenox 30 mg SQ BID (WT < 150 kg, CrCl > 30 mL/min) AND/OR *Sequential Compression Device (SCD) 5 or more Highest Order ONE of the following medications: *Heparin 5000 units SQ TID (Preferred with Epidurals) *Enoxaparin/Lovenox 40 mg SQ daily (WT < 150 kg, CrCl > 30 mL/min) *Enoxaparin/Lovenox 30 mg SQ daily (WT < 150 kg, CrCl > 10-29 mL/min) *Enoxaparin/Lovenox 30 mg SQ BID (WT < 150 kg, CrCl > 30 mL/min) AND *Sequential Compression Device (SCD) Assessment and Plan - Plan A/P - rhabdomyolysis start on IV fluid- will monitor the renal function and CPK level closely. -history of lupus/RA; resume Plaquenil and prednisone -neuropathy; resume Gabapentin -elevated LFT's ; due to Cirrhosis and Rhabdomyolysis- no abdominal pain- will continue to monitor; CMP in am. -Cirrhosis- being followed up by GI Discussed Condition With: ER physician and the patient. Discharge Planning: home when stable.
[2018-06-25] MEDS: Gabapentin 300 MG Capsule PO SCH ×2 (12:43→17:16)
[2018-06-25] MEDS: Sod Chloride 0.9% Inj 1,000 ML IV.CONT SCH ×2 (12:43→22:16)
[2018-06-25 17:38] LABS: Creatine Kinase MB 408.2 ng/mL (0.5-3.6)
[2018-06-25 18:47] LABS: Clarity,Urine Clear (Clear); Glucose,Urine (UA) Negative (Negative); Leukocyte Esterase,Urine Negative (Negative); Nitrite,Urine Positive (Negative); Specific Gravity,Urine 1.025 (1.002-1.035)
[2018-06-25 18:49] LABS: Bilirubin,Urine Negative (Negative); Color,Urine Amber (Yellw/Straw)
[2018-06-25 18:51] LABS: Squamous Epithelial Cell,Urine 0-5 /hpf (0-5); WBC,Urine 0-5 /hpf (0-5)
[2018-06-25 18:52] LABS: Bacteria,Urine Occasional /hpf
[2018-06-26] MEDS: Sod Chloride 0.9% Inj 1,000 ML IV.CONT SCH ×4 (05:56→18:35)
[2018-06-26 08:12] LABS: Chloride 104 meq/L (98-107); Potassium 4.4 meq/L (3.5-5.1); Sodium 137 meq/L (136-145)
[2018-06-26 08:15] LABS: Calcium 8.1 mg/dL (8.5-10.1)
[2018-06-26 08:31] LABS: Alanine Aminotransferase 308 U/L (10-53); Albumin 2.9 g/dL (3.4-5.0); Alkaline Phosphatase 59 U/L (45-117); Anion Gap 9 meq/L (5-15); Blood Urea Nitrogen 12 mg/dL (7-18); Carbon Dioxide 24.2 meq/L (21.0-32.0); Glomerular Filtration Rate Greater Than 89 mL/min (>89); Glucose,Random 102 mg/dL (74-106); Total Protein 7.2 g/dL (6.4-8.2)
[2018-06-26] MEDS: Gabapentin 300 MG Capsule PO SCH ×3 (08:38→19:03)
[2018-06-26 08:47] LABS: Aspartate Aminotransferase 2456 U/L (15-37)
[2018-06-26] MEDS ORDERED: Hydroxychloroquine 200 MG Tablet PO SCH (09:00)
--- NOTE | 2018-06-26 09:07 | P.PNIM ---
Subjective Interval history: f/u; rhabdomyolysis in no acute distress. complaining of muscle stiffness- lower extremities. no fever. reportedly had a fall earlier today when she was trying to get out of the bed. d/w the RN at the bedside. Physical Exam Vital signs: Vital Signs 06/25/18 11:40 06/25/18 15:57 06/25/18 17:45 Temperature 97.9 F 97.4 F L Pulse Rate 92 H 90 Respiratory Rate 14 18 Blood Pressure 148/103 H 166/79 H 148/78 H Pulse Oximetry 97 99 06/25/18 20:00 06/26/18 00:00 06/26/18 07:37 Temperature 97.6 F 97.1 F L 97.1 F L Pulse Rate 94 H 88 96 H Respiratory Rate 20 20 17 Blood Pressure 160/77 H 130/75 133/79 Pulse Oximetry 98 97 98 06/26/18 08:00 06/26/18 08:37 Temperature 97.1 F L 96.7 F L Pulse Rate 96 H 93 H Respiratory Rate 17 18 Blood Pressure 133/79 138/87 Pulse Oximetry 98 100 Intake & Output 06/25/18 06/26/18 06/26/18 18:59 06:59 18:59 Intake Total 1000 / 1000 1810 / 1810 Balance 1000 / 1000 1810 / 1810 Weight 56 kg 56 kg Intake: IV 1000 / 1000 1300 / 1300 NS Inj 1,000 ML @ 125 mls/hr IV 1300 / 1300 .CONT .Q8H [facility] Rx#:[id number] NS Inj 1,000 ML @ Wide Open IV. 1000 / 1000 SIG BOLUS [facility] Rx#:[id number] Oral 510 / 510 Other: # Voids 2 4 # Incontinent Bowel Movements 0 Weight On Admission 56 kg - Constitutional no acute distress - Routine Respiratory Exam Present: CTA bilaterally - Routine Cardiovascular Exam Present: RRR - Routine Abdominal Exam Present: soft - Routine Extremities Exam Comments: no pedal edema. - Routine Neurological Exam Present: alert, oriented X3 Results - Labs CBC & Chem 7: 06/26/18 07:35 Laboratory Results - last 24 hr 06/25/18 06/25/18 06/26/18 15:33 18:20 07:35 Sodium 137 Potassium 4.4 Chloride 104 Carbon Dioxide 24.2 Anion Gap 9 BUN 12 Creatinine 0.60 Estimated GFR Greater than 89 Random Glucose 102 Calcium 8.1 L Total Bilirubin 0.4 AST 2456 H ALT 308 H Alkaline Phosphatase 59 Total Creatine Kinase Greater than 64044 H CK-MB (CK-2) 408.2 H CK-MB (CK-2) % 0.0 Total Protein 7.2 D Albumin 2.9 L D Urine Color Mela H Urine Clarity Clear Urine pH 6.0 Ur Specific [place] 1.025 Urine Protein 300 or greater H Urine Glucose (UA) Negative Urine Ketones Negative Urine Occult Blood Large H Urine Nitrate Positive H Urine Bilirubin Negative Urine Urobilinogen 1.0 Ur Leukocyte Esterase Negative Urine RBC 4-15 H Urine WBC 0-5 Ur Squamous Epith Cells 0-5 Urine Bacteria Occasional H Micro UA Comment Culture indicated Ur Microscopic Review Microscopic reviewed Urine Culture Comments Culture indicated 06/26/18 07:35 Sodium Potassium Chloride Carbon Dioxide Anion Gap BUN Creatinine Estimated GFR Random Glucose Calcium Total Bilirubin AST ALT Alkaline Phosphatase Total Creatine Kinase Greater than 74619 H CK-MB (CK-2) CK-MB (CK-2) % Total Protein Albumin Urine Color Urine Clarity Urine pH Ur Specific [place] Urine Protein Urine Glucose (UA) Urine Ketones Urine Occult Blood Urine Nitrate Urine Bilirubin Urine Urobilinogen Ur Leukocyte Esterase Urine RBC Urine WBC Ur Squamous Epith Cells Urine Bacteria Micro UA Comment Ur Microscopic Review Urine Culture Comments Assessment and Plan - Plan A/P - rhabdomyolysis continue on IV fluid- will monitor the renal function and CPK level closely. -history of lupus/RA; hold Plaquenil -resume prednisone -neuropathy; resumed Gabapentin/ fall precautions. -elevated LFT's ; due to Cirrhosis and Rhabdomyolysis- no abdominal pain- check liver US and will continue to monitor; CMP in am. -possible UTI; start on IV antibiotic and follow the culture. -Cirrhosis- being followed up by GI Discharge Planning: home when clinically better- pending CPK trend.
[2018-06-26 09:21] LABS: Creatine Kinase MB 557.5 ng/mL (0.5-3.6)
[2018-06-26] MEDS: Morphine Inj 4 MG/ML Vial IV.PUSH PRN ×2 (15:02→22:38)
--- NOTE | 2018-06-26 15:08 | US ---
EXAM DATE: 06/26/2018 12:00 AM EDT AGE/SEX: 58 years / Female INDICATIONS: Bilateral leg pain. CLINICAL DATA: This is the patient's initial encounter. Patient reports that signs and symptoms have been present for 2 days and indicates a pain score of 6/10. MEDICAL/SURGICAL HISTORY: Cirrhosis. Aneurysm, abdominal. Osteoporosis. LUPUS. Left cubital tunnel syndrome. Dry eye syndrome. Polymyositis. section. COMPARISON: [facility], MR LOWER LEG W/O CONTRAST, LEFT, 07/23/2017. . TECHNIQUE: Venous ultrasound of both lower extremities was performed from the inguinal ligament to t he proximal calf. Real-time, color Doppler and spectral tracing, compression and augmentation techni ques were used. FINDINGS: Right Leg: Normal compression of the deep venous system from the inguinal region to the proximal rosibel f. No echogenic clot is seen. Normal response of the venous system to augmentation and respiration. Left Leg: Normal compression of the deep venous system from the inguinal region to the proximal calf . No echogenic clot is seen. Normal response of the venous system to augmentation and respiration. Other: None. CONCLUSION: 1. No sonographic evidence for lower extremity DVT. Electronically signed by: Vaughn Zhu MD 06/26/2018 3:07 PM EDT
[2018-06-26 16:30] LABS: Creatine Kinase MB 492.3 ng/mL (0.5-3.6)
[2018-06-26 22:29] LABS: Creatine Kinase MB 421.8 ng/mL (0.5-3.6)
[2018-06-27] MEDS: Sod Chloride 0.9% Inj 1,000 ML IV.CONT SCH ×4 (03:10→18:31)
[2018-06-27 07:05] LABS: Chloride 105 meq/L (98-107); Potassium 3.7 meq/L (3.5-5.1); Sodium 137 meq/L (136-145)
[2018-06-27 07:11] LABS: Albumin 2.5 g/dL (3.4-5.0); Anion Gap 7 meq/L (5-15); Calcium 7.9 mg/dL (8.5-10.1); Carbon Dioxide 24.8 meq/L (21.0-32.0); Glucose,Random 89 mg/dL (74-106)
[2018-06-27 07:12] LABS: Blood Urea Nitrogen 13 mg/dL (7-18)
[2018-06-27 07:14] LABS: Alanine Aminotransferase 370 U/L (10-53)
[2018-06-27 07:15] LABS: Glomerular Filtration Rate Greater Than 89 mL/min (>89)
[2018-06-27 07:16] LABS: Total Protein 6.6 g/dL (6.4-8.2)
[2018-06-27 07:17] LABS: Alkaline Phosphatase 50 U/L (45-117)
[2018-06-27 07:31] LABS: Aspartate Aminotransferase 2585 U/L (15-37)
--- NOTE | 2018-06-27 07:43 | P.PNIM ---
Subjective Interval history: f/u; rhabdomyolysis in no acute distress. feeling better/ muscle stiffness and pain of lower extremities has improved. Physical Exam Vital signs: Vital Signs 06/26/18 08:00 06/26/18 08:37 06/26/18 11:49 Temperature 98.2 F 96.7 F L 99.5 F Pulse Rate 94 H 93 H 90 Respiratory Rate 18 18 20 Blood Pressure 126/65 138/87 130/76 Pulse Oximetry 95 100 97 06/26/18 12:00 06/26/18 15:00 06/26/18 16:00 Temperature 96.3 F L 98.6 F 99.8 F H Pulse Rate 73 95 H 92 H Respiratory Rate 20 18 20 Blood Pressure 113/58 L 122/62 114/71 Pulse Oximetry 94 L 97 96 06/26/18 19:05 06/26/18 20:00 06/27/18 00:00 Temperature 98.8 F 98.2 F 97.5 F L Pulse Rate 95 H 94 H 90 Respiratory Rate 18 18 18 Blood Pressure 140/87 126/65 110/55 L Pulse Oximetry 99 95 94 L Intake & Output 06/26/18 06/27/18 06/27/18 18:59 06:59 18:59 Intake Total 3003 / 3003 1000 / 1000 Output Total 850 / 850 Balance 3003 / 3003 150 / 150 Weight 58.7 kg Intake: IV 2100 / 2100 1000 / 1000 NS Inj 1,000 ML @ 175 mls/hr IV 2000 / 2000 1000 / 1000 .CONT .[id number] [facility] Rx#: [id number] Rocephin Inj 1,000 MG In NS Inj 100 / 100 100 ML @ 200 mls/hr IV.SIG Q24H [facility] Rx#:[id number] Oral 903 / 903 0 / 0 Output: Urine 850 / 850 Other: # Voids 750 - Constitutional no acute distress - Routine Respiratory Exam Present: CTA bilaterally - Routine Cardiovascular Exam Present: RRR - Routine Abdominal Exam Present: soft - Routine Extremities Exam Comments: muscle stiffness lower extremities has improved and now can move the legs much more easily. - Routine Neurological Exam Present: alert, oriented X3 Results - Labs CBC & Chem 7: 06/27/18 06:22 Laboratory Results - last 24 hr 06/26/18 06/26/18 06/26/18 07:35 07:35 14:50 ESR Sodium 137 Potassium 4.4 Chloride 104 Carbon Dioxide 24.2 Anion Gap 9 BUN 12 Creatinine 0.60 Estimated GFR Greater than 89 Random Glucose 102 Calcium 8.1 L Total Bilirubin 0.4 AST 2456 H ALT 308 H Alkaline Phosphatase 59 Total Creatine Kinase Greater than 31414 H Greater than 65579 H CK-MB (CK-2) 557.5 H 492.3 H CK-MB (CK-2) % 0.0 0.0 Total Protein 7.2 D Albumin 2.9 L D 06/26/18 06/27/18 06/27/18 20:39 06:22 06:22 ESR 74 H Sodium 137 Potassium 3.7 Chloride 105 Carbon Dioxide 24.8 Anion Gap 7 BUN 13 Creatinine 0.44 L Estimated GFR Greater than 89 Random Glucose 89 Calcium 7.9 L Total Bilirubin 0.4 AST 2585 H ALT 370 H Alkaline Phosphatase 50 Total Creatine Kinase Greater than 92339 H CK-MB (CK-2) 421.8 H CK-MB (CK-2) % 0.0 Total Protein 6.6 D Albumin 2.5 L Microbiology 06/25/18 18:20 Clean Catch Urine Urine Culture - Preliminary No growth in 24 hours - Imaging Impressions Venous Doppler Study 06/26/18 00:00 CONCLUSION: 1. No sonographic evidence for lower extremity DVT. Assessment and Plan - Plan A/P - rhabdomyolysis continue on IV fluid- will monitor the renal function and CPK level closely. -history of lupus/RA; hold Plaquenil for now. -neuropathy; resumed Gabapentin/ fall precautions. -elevated LFT's ; due to Cirrhosis and Rhabdomyolysis- no abdominal pain- check liver US/hepatitis panel and will continue to monitor; CMP in am. -possible UTI; started on IV antibiotic and follow the culture. -Cirrhosis- was taken off Methotrexate a few weeks ago- has been evaluated by GI before. Discharge Planning: home when clinically better- pending CPK trend.
--- NOTE | 2018-06-27 08:41 | US ---
EXAM DATE: 06/27/2018 12:00 AM EDT AGE/SEX: 58 years / Female INDICATIONS: Cirrhosis. CLINICAL DATA: This is the patient's initial encounter. Patient reports that signs and symptoms have been present for 2 weeks and indicates a pain score of 0/10. MEDICAL/SURGICAL HISTORY: Aneurysm, abdominal. Cirrhosis. Lupus. Cubital tunnel syndrome. Dry eye syndrome. Osteoporosis. Polymyositis. section. Colonoscopy. COMPARISON: [facility], CT ABDOMEN W/ CONTRAST, 05/13/2018. . MEASUREMENTS: Liver:__ 16.8 cm. Common Bile Duct:__ 5mm. Right Kidney:__ 11.4 x 5.5 x 5.4 cm. FINDINGS: Liver: Increased echotexture without focal lesion or ductal dilation. Slightly nodular contour. Portal Vein: Hepatopedal flow seen in portal vein. Common Duct: No intraluminal mass or stone visualized. Gallbladder: Demonstrates no wall thickening or pericholecystic fluid. No stones visualized. Pancreas: The visualized portions are within normal limits Right Kidney: Increased echotexture. No mass or hydronephrosis. Other: None. CONCLUSION: 1. Mildly cirrhotic appearing liver with patent portal vein. No ascites. 2. Minimal gallbladder wall thickening. This is commonly seen in the setting of chronic liver diseas e although it limits overall sonograph utility for evaluation of acute cholecystitis. 3. Slightly echogenic right kidney which may reflect some degree of medical liver disease. Electronically signed by: Vaughn Zhu MD 06/27/2018 8:40 AM EDT
[2018-06-27 08:45] LABS: Creatine Kinase MB 372.2 ng/mL (0.5-3.6)
[2018-06-27] MEDS: Gabapentin 300 MG Capsule PO SCH ×3 (09:30→18:33)
--- NOTE | 2018-06-27 10:17 | P.PNADD ---
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
[2018-06-27 11:48] LABS: Hepatitis A IgM Antibody Nonreactive (Nonreactive)
[2018-06-27 11:49] LABS: Hepatitits B Surface Antigen Nonreactive (Nonreactive)
[2018-06-27] MEDS: MethylPREDNISolone Sod Succinate Inj 125 MG/2 ML Vial IV.PUSH SCH ×2 (12:28→20:10)
[2018-06-27 18:49] LABS: Creatine Kinase MB 274.3 ng/mL (0.5-3.6)
[2018-06-27 21:10] LABS: Prothrombin Time 10.6 sec (9.8-11.6)
--- NOTE | 2018-06-27 22:53 | MB ---
cc: Ivan Romero MD, Donato R MD Minouei,Michelle RENO DATE: 06/27/2018 REASON FOR CONSULTATION: I have been asked to see the patient by Dr. Dsouza for evaluation of abnormal LFTs and cirrhosis. HISTORY OF PRESENT ILLNESS: The patient is a pleasant 58-year-old white female who is followed in the office. She came to us after she had increased LFTs and a CAT scan was done and showed a cirrhotic liver with mild hepatosplenomegaly. She had been on methotrexate for about 6-9 months. Prior to that, she has been on Plaquenil. She does not drink significant amounts of alcohol and has no other risk factors, blood transfusions or intravenous drug abuse. We did send off some labs in the office and her hepatitis panel came back negative. Her workup for hemochromatosis, autoimmune hepatitis, alpha-1 antitrypsin deficiency and Johnny disease was also negative. However, her antimitochondrial antibody was positive at a value of 1:640, which is very elevated. Apparently, the patient was taken off her methotrexate and she started getting a lot of muscle aches. She came to the hospital and she was basically in rhabdomyolysis with a high CPK. Her SGOT is quite elevated and also relative SGPT when asked to comment in this regard. The patient denies any low blood pressure or use of any Tylenol. She does take NSAIDs at times. No dysphagia or odynophagia. Denies nausea, vomiting, heartburn. No melena, hematochezia, diarrhea or constipation. No confusion. No jaundice. No liliana-colored stools. PAST MEDICAL HISTORY: Significant for Sjogren syndrome, rheumatoid arthritis, lupus, hypertension, abdominal aortic aneurysm. She says she is up-to-date on her colonoscopies. She has had cirrhosis of her liver diagnosed via a CT scan. She has a positive antimitochondrial antibody, carpal tunnel syndrome, dry eyes, osteoporosis, polymyositis. PAST SURGICAL HISTORY: and appendectomy. FAMILY HISTORY: Significant for colon polyps in her mother and colon cancer in her mother. There is a family history of arthritis. SOCIAL HISTORY: She does smoke. She drinks alcohol very rarely. She never drank heavy in the past, but she has not really drank much in 4 years. REVIEW OF SYSTEMS: CONSTITUTIONAL: No weight loss. No fever or chills. CARDIOPULMONARY: No chest pain, palpitations, shortness of breath. GASTROINTESTINAL: Please see above. MUSCULOSKELETAL: She does have some muscle aches. Otherwise, unremarkable 10-point review of systems. ALLERGIES: AZITHROMYCIN, CODEINE AND ERYTHROMYCIN BASE. MEDICATIONS IN THE HOSPITAL: Include: 1. Ceftriaxone. 2. Flexeril. 3. Neurontin. 4. Plaquenil. 5. Solu-Medrol. 6. Morphine. 7. Oxycontin. PHYSICAL EXAMINATION: VITAL SIGNS: Blood pressure 157/80, pulse 91, respiratory rate 22, temperature 99. GENERAL: She is a well-developed, well-nourished white female resting comfortably at this time and appears in no acute GI distress. HEENT: Her pupils are equal and reactive to light. No obvious scleral icterus. Oropharyngeal cavity has dental caries. No tongue deviation or Candidal lesions. Hearing is intact. NECK: Supple without thyromegaly or lymphadenopathy. LUNGS: Clear to auscultation. HEART: Regular rate and rhythm. No murmurs heard. ABDOMEN: Soft, nondistended, nontender. No organomegaly or masses. No ascites or hernias are noted. Bowel sounds are positive in all 4 quadrants. EXTREMITIES: No cyanosis, clubbing or edema. NEUROLOGIC: Cranial nerves 2-12 are grossly intact. No asterixis. I did not assess her gait. RECTAL: Not done. IMAGING DATA: Ultrasound of the abdomen done today revealed a cirrhotic liver with a patent portal vein. No ascites. There was mild gallbladder wall thickening, but she had no Flores sign on physical exam. There is a slightly echogenic right kidney also. LABORATORY DATA: Reveal a sedimentation rate of 74, which is elevated. Acute hepatitis panel is negative. Her chemistries reveal a total creatine kinase of over 14,000. Her CK-MB was as high 372.2. C-reactive protein is elevated at 7.10. Albumin is low at 2.5 with total protein normal at 6.6. Her SGOT is 2585 and SGPT is 370, which are both elevated. Alkaline phosphatase is 50, which is normal. Total bilirubin is 0.4, which is normal. BUN 13, creatinine 0.44, potassium 3.7, sodium 137. IMPRESSION: 1. Increased liver function tests. The SGOT is quite elevated and besides the liver it can also come from skeletal muscle, cardiac, kidney and brain. So I suspect that SGOT being this elevated is mainly skeletal muscle. However, her SGPT is elevated and there is some degree of liver damage. She does have known cirrhosis and a workup in the office revealed possible primary biliary cirrhosis. Interestingly, usually in primary biliary cirrhosis, the alkaline phosphatase is elevated. She says she has not been taking any Tylenol, but we need to check for this. She does take Aleve at times and I have asked to avoid nonsteroidal anti-inflammatory drugs. Autoimmune hepatitis can present in the same way, but her autoimmune markers were negative in the office. There was no evidence of a low blood pressure to point to shock liver. 2. Positive antimitochondrial antibody. This is quite high and very suggestive of primary biliary cirrhosis. This is seen in people her age. She is also cirrhotic. However, her hepatic enzymes are not consistent with this with PBC. Usually, alkaline phosphatase is elevated. 3. Cirrhosis. Etiology is unclear. Possible related to possibly primary biliary cirrhosis (no biopsy yet). 4. Family history of colon cancer and colon polyps in her mother. She says she is up-to-date on her colonoscopies. RECOMMENDATIONS: 1. I would continue your management of the rhabdomyolysis with IV fluids. 2. Please check Tylenol level, alpha fetoprotein, pro time and INR. 3. Avoid NSAIDs and alcohol. 4. Consideration should be done to liver biopsy, but I would not worry about it right now. We may consider it as an outpatient. 5. Debate at this time whether we start her on Ursodiol. This does help patients with PBC. Whether it will help in this situation is unclear. It is typically 13-15mg/kg per day. At 15 mg, it works out to over 880 mg a day. So therefore, I would start Ursodiol 900 mg a day in divided doses. Side effects were discussed. 6. Further recommendations depend upon how she does. MD GENEVIEVE Serna/karma , 08:24 PM , 08:39 PM ADDENDUM--Patient signed out AMA MTDD
[2018-06-28] MEDS: Sod Chloride 0.9% Inj 1,000 ML IV.CONT SCH ×2 (00:25→06:23)
[2018-06-28 06:32] LABS: Chloride 106 meq/L (98-107); Potassium 3.8 meq/L (3.5-5.1); Sodium 138 meq/L (136-145)
[2018-06-28 06:37] LABS: Albumin 2.5 g/dL (3.4-5.0); Glucose,Random 143 mg/dL (74-106)
[2018-06-28 06:38] LABS: Albumin 2.5 g/dL (3.4-5.0); Anion Gap 8 meq/L (5-15); Blood Urea Nitrogen 18 mg/dL (7-18); Carbon Dioxide 23.8 meq/L (21.0-32.0)
[2018-06-28 06:39] LABS: Alanine Aminotransferase 398 U/L (10-53)
[2018-06-28 06:40] LABS: Glomerular Filtration Rate Greater Than 89 mL/min (>89)
[2018-06-28 06:41] LABS: Total Protein 6.8 g/dL (6.4-8.2)
[2018-06-28 06:42] LABS: Alkaline Phosphatase 51 U/L (45-117); Total Protein 6.8 g/dL (6.4-8.2)
[2018-06-28 06:47] LABS: Aspartate Aminotransferase 1959 U/L (15-37)
[2018-06-28 07:25] LABS: Creatine Kinase MB 201.4 ng/mL (0.5-3.6)
[2018-06-28 09:09] VITALS: BP 128/60; PULSE 85; RESP 16; TEMP 97.7; O2SAT 98
--- NOTE | 2018-06-28 09:42 | P.PNIM ---
Subjective Interval history: f/u; rhabdomyolysis in no acute distress. pain and stiffness of the legs has improved. no new complaints. Physical Exam Vital signs: Vital Signs 06/27/18 12:00 06/27/18 16:00 06/27/18 20:00 Temperature 98.2 F 99.0 F 97.2 F L Pulse Rate 87 91 H 77 Respiratory Rate 21 22 18 Blood Pressure 130/60 157/80 H 142/72 H Pulse Oximetry 99 97 94 L 06/28/18 00:00 06/28/18 09:08 Temperature 97.5 F L 97.7 F Pulse Rate 76 85 Respiratory Rate 18 16 Blood Pressure 142/72 H 128/60 Pulse Oximetry 94 L 98 Intake & Output 06/27/18 06/28/18 06/28/18 18:59 06:59 18:59 Intake Total 4260 / 4260 2050 / 2050 Output Total 2601 / 2601 700 / 700 Balance 1659 / 1659 1350 / 1350 Weight 61.1 kg Intake: IV 3100 / 3100 1999 / 1999 NS Inj 1,000 ML @ 175 mls/hr IV 3000 / 3000 1999 / 1999 .CONT .Q5H43M [facility] Rx#: [id number] Rocephin Inj 1,000 MG In NS Inj 100 / 100 100 ML @ 200 mls/hr IV.SIG Q24H [facility] Rx#:[id number] Oral 1160 / 1160 50 / 50 Output: Urine 2400 / 2400 700 / 700 Stool 201 / 201 Other: Date of Last Bowel Movement 06/27/18 06/27/18 - Constitutional no acute distress - Routine Respiratory Exam Present: CTA bilaterally - Routine Cardiovascular Exam Present: RRR - Routine Abdominal Exam Present: soft - Routine Extremities Exam Comments: no pedal edema. - Routine Neurological Exam Present: alert, oriented X3 Results - Labs CBC & Chem 7: 06/28/18 06:10 Laboratory Results - last 24 hr 06/27/18 06/27/18 06/27/18 06:22 06:22 06:22 PT INR Sodium Potassium Chloride Carbon Dioxide Anion Gap BUN Creatinine Estimated GFR Random Glucose Calcium Total Bilirubin Direct Bilirubin Indirect Bilirubin AST ALT Alkaline Phosphatase Lactate Dehydrogenase 2504 H Total Creatine Kinase CK-MB (CK-2) CK-MB (CK-2) % C-Reactive Protein 7.10 H Total Protein Albumin Tumor Marker AFP Acetaminophen MARI-1 IgG Antibody Hepatitis A IgM Ab Nonreactive Hep Bs Antigen Nonreactive Hep B Core IgM Ab Nonreactive Hep C IgG Ab Nonreactive 06/27/18 06/27/18 06/27/18 11:15 17:40 17:40 PT INR Sodium Potassium Chloride Carbon Dioxide Anion Gap BUN Creatinine Estimated GFR Random Glucose Calcium Total Bilirubin Direct Bilirubin Indirect Bilirubin AST ALT Alkaline Phosphatase Lactate Dehydrogenase Total Creatine Kinase [place] [address] H CK-MB (CK-2) 274.3 H CK-MB (CK-2) % 0.0 C-Reactive Protein Total Protein Albumin Tumor Marker AFP Acetaminophen Less than 2.0 L MARI-1 IgG Antibody Less than 0.2 Hepatitis A IgM Ab Hep Bs Antigen Hep B Core IgM Ab Hep C IgG Ab 06/27/18 06/27/18 06/28/18 20:50 20:50 06:10 PT 10.6 INR 1.0 Sodium 138 Potassium 3.8 Chloride 106 Carbon Dioxide 23.8 Anion Gap 8 BUN 18 Creatinine 0.59 Estimated GFR Greater than 89 Random Glucose 143 H Calcium 8.0 L Total Bilirubin 0.2 Direct Bilirubin Indirect Bilirubin AST 1959 H ALT 398 H Alkaline Phosphatase 51 Lactate Dehydrogenase Total Creatine Kinase Greater than 93743 H CK-MB (CK-2) 201.4 H CK-MB (CK-2) % 0.0 C-Reactive Protein Total Protein 6.8 Albumin 2.5 L Tumor Marker AFP 4.0 Acetaminophen MARI-1 IgG Antibody Hepatitis A IgM Ab Hep Bs Antigen Hep B Core IgM Ab Hep C IgG Ab 06/28/18 06:10 PT INR Sodium Potassium Chloride Carbon Dioxide Anion Gap BUN Creatinine Estimated GFR Random Glucose Calcium Total Bilirubin 0.4 Direct Bilirubin 0.1 Indirect Bilirubin 0.3 AST 1953 H ALT 397 H Alkaline Phosphatase 50 Lactate Dehydrogenase Total Creatine Kinase CK-MB (CK-2) CK-MB (CK-2) % C-Reactive Protein Total Protein 6.8 Albumin 2.5 L Tumor Marker AFP Acetaminophen MARI-1 IgG Antibody Hepatitis A IgM Ab Hep Bs Antigen Hep B Core IgM Ab Hep C IgG Ab Microbiology 06/25/18 18:20 Clean Catch Urine Urine Culture - Final 10-50,000 cfu/mL mixed gram positive francine (probable contaminants) Assessment and Plan - Plan A/P - rhabdomyolysis continue on IV fluid- will monitor the renal function and CPK level closely. 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 -history of lupus/RA; hold Plaquenil for now. IV steroids as noted above. -neuropathy; resumed Gabapentin/ fall precautions. -elevated LFT's ; due to Cirrhosis and Rhabdomyolysis- no abdominal pain- hepatitis panel negative. GI consult appreciated and started on Ursodiol. -possible UTI; UC with mixed gram-positive francine- will dc antibiotics. -Cirrhosis- was taken off Methotrexate a few weeks ago- has been evaluated by GI before. Discharge Planning: home when clinically better- pending CPK trend.
[2018-06-28] MEDS: MethylPREDNISolone Sod Succinate Inj 125 MG/2 ML Vial IV.PUSH SCH (09:46)
[2018-06-28] MEDS: Gabapentin 300 MG Capsule PO SCH (09:46)
--- NOTE | 2018-06-28 10:56 | P.DS ---
Date of admission: 06/25/18 12:28 Primary care physician: Joyce Jose MD Brief History from admission: patient is a 58 y/o female with history of lupus,RA, neuropathy, cirrhosis who presented to ER with muscle pain. she says that she was taken off her methotrexate about a month ago because of cirrhosis. she says that she's had some muscle pain to both upper and lower extremities for the past few weeks but it's more intense in the calves. she denies any recent fall. she was seen in ER earlier today but signed out. she says that she couldn't take the pain and she decided to come back to ER.she denies any other symptoms including chest pain sob, abdominal pain, nausea. DS: Summary Hospital Course: patient was admitted with rhabdomyolysis. she was started on aggressive IV fluid. 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 she was found to have elevated LFT's for whish GI was consulted and was started on Ursodiol. however the patient decided to sign out against medical advice. - Time Spent with Patient Total time spent providing and/or coordinating discharge services: Less than 30 minutes - Quality: VTE Deep Vein Thrombosis/Pulmonary Embolism Present on Admission: No Exam Vital signs: Vital Signs 06/27/18 12:00 06/27/18 16:00 06/27/18 20:00 Temperature 98.2 F 99.0 F 97.2 F L Pulse Rate 87 91 H 77 Respiratory Rate 21 22 18 Blood Pressure 130/60 157/80 H 142/72 H Pulse Oximetry 99 97 94 L 06/28/18 00:00 06/28/18 09:08 Temperature 97.5 F L 97.7 F Pulse Rate 76 85 Respiratory Rate 18 16 Blood Pressure 142/72 H 128/60 Pulse Oximetry 94 L 98 Intake & Output 06/27/18 06/28/18 06/28/18 18:59 06:59 18:59 Intake Total 4260 / 4260 2049 / 2049 Output Total 2601 / 2601 700 / 700 Balance 1659 / 1659 1350 / 1350 Weight 61.1 kg Intake: IV 3100 / 3100 1999 / 1999 NS Inj 1,000 ML @ 175 mls/hr IV 3000 / 3000 1999 / 1999 .CONT .Q5H43M [facility] Rx#: [id number] Rocephin Inj 1,000 MG In NS Inj 100 / 100 100 ML @ 200 mls/hr IV.SIG Q24H [facility] Rx#:[id number] Oral 1160 / 1160 50 / 50 Output: Urine 2400 / 2400 700 / 700 Stool 201 / 201 Other: Date of Last Bowel Movement 06/27/18 06/27/18 - Constitutional no acute distress - Routine Respiratory Exam Present: CTA bilaterally - Routine Cardiovascular Exam Present: RRR - Routine Abdominal Exam Present: soft - Routine Extremities Exam Comments: no pedal edema. - Routine Neurological Exam Present: alert, oriented X3 Results Procedures completed during hospitalization: none. Labs on day of discharge: Labs from last 24 hours 06/28/18 06/28/18 06/27/18 06:10 06:10 20:50 PT INR Sodium 138 Potassium 3.8 Chloride 106 Carbon Dioxide 23.8 Anion Gap 8 BUN 18 Creatinine 0.59 Estimated GFR Greater than 89 Random Glucose 143 H Calcium 8.0 L Total Bilirubin 0.4 0.2 Direct Bilirubin 0.1 Indirect Bilirubin 0.3 AST 1953 H 1959 H ALT 397 H 398 H Alkaline Phosphatase 50 51 Lactate Dehydrogenase Total Creatine Kinase Greater than 28316 H CK-MB (CK-2) 201.4 H CK-MB (CK-2) % 0.0 Total Protein 6.8 6.8 Albumin 2.5 L 2.5 L Aldolase Tumor Marker AFP 4.0 Acetaminophen MARI-1 IgG Antibody SS-A Antibody Sm ([place]) Antibody SM/POWERSAW SUPERVISOR Antibody Hepatitis A IgM Ab Hep Bs Antigen Hep B Core IgM Ab Hep C IgG Ab 06/27/18 06/27/18 06/27/18 20:50 17:40 17:40 PT 10.6 INR 1.0 Sodium Potassium Chloride Carbon Dioxide Anion Gap BUN Creatinine Estimated GFR Random Glucose Calcium Total Bilirubin Direct Bilirubin Indirect Bilirubin AST ALT Alkaline Phosphatase Lactate Dehydrogenase Total Creatine Kinase Greater [place] 76474 H CK-MB (CK-2) 274.3 H CK-MB (CK-2) % 0.0 Total Protein Albumin Aldolase Tumor Marker AFP Acetaminophen Less than 2.0 L MARI-1 IgG Antibody SS-A Antibody Sm ([place]) Antibody SM/POWERSAW SUPERVISOR Antibody Hepatitis A IgM Ab Hep Bs Antigen Hep B Core IgM Ab Hep C IgG Ab 06/27/18 06/27/18 06/27/18 11:15 11:15 11:15 PT INR Sodium Potassium Chloride Carbon Dioxide Anion Gap BUN Creatinine Estimated GFR Random Glucose Calcium Total Bilirubin Direct Bilirubin Indirect Bilirubin AST ALT Alkaline Phosphatase Lactate Dehydrogenase Total Creatine Kinase CK-MB (CK-2) CK-MB (CK-2) % Total Protein Albumin Aldolase Tumor Marker AFP Acetaminophen MARI-1 IgG Antibody Less than 0.2 SS-A Antibody Pending Sm ([place]) Antibody Pending Pending SM/POWERSAW SUPERVISOR Antibody Pending Hepatitis A IgM Ab Hep Bs Antigen Hep B Core IgM Ab Hep C IgG Ab 06/27/18 06/27/18 06/27/18 11:15 06:22 06:22 PT INR Sodium Potassium Chloride Carbon Dioxide Anion Gap BUN Creatinine Estimated GFR Random Glucose Calcium Total Bilirubin Direct Bilirubin Indirect Bilirubin AST ALT Alkaline Phosphatase Lactate Dehydrogenase 2504 H Total Creatine Kinase CK-MB (CK-2) CK-MB (CK-2) % Total Protein Albumin Aldolase Pending Tumor Marker AFP Acetaminophen MARI-1 IgG Antibody SS-A Antibody Sm ([place]) Antibody SM/POWERSAW SUPERVISOR Antibody Hepatitis A IgM Ab Nonreactive Hep Bs Antigen Nonreactive Hep B Core IgM Ab Nonreactive Hep C IgG Ab Nonreactive - Impressions ITS Impressions Venous Doppler Study 06/26/18 00:00 CONCLUSION: 1. No sonographic evidence for lower extremity DVT. Liver Ultrasound 06/27/18 00:00 CONCLUSION: 1. Mildly cirrhotic appearing liver with patent portal vein. No ascites. 2. Minimal gallbladder wall thickening. This is commonly seen in the setting of chronic liver disease although it limits overall sonograph utility for evaluation of acute cholecystitis. 3. Slightly echogenic right kidney which may reflect some degree of medical liver disease. Discharge Plan - Discharge Condition Condition: Fair - Discharge Order Discharge Orders: AMA Discharge (Routine); Ordered 06/28/18 Ordered By: Laura Dsouza - Physicians Team Primary Care Provider: Joyce Jose Attending Provider: Laura Dsouza Other Providers: [employer] ; Chad Sue MD
[2018-06-30 15:50] LABS: Anti-Smith Antibody <1.0 NEG AI (<1.0 NEGATIVE); Anti-Smith/RNP Ab <1.0 NEG AI (<1.0 NEGATIVE)
== END 2018-06-28 11:05 | disposition left against medical advice (07) ==
LOC: PHED 11:40 → PHEDA 12:28 → PH3 13:43
PROVIDERS: ADMIT Internal Medicine; ATTEND Internal Medicine

== ENCOUNTER 2018-06-28 21:08 | Inpatient (IN) ==
[2018-06-28] MEDS ORDERED: Sod Chloride 0.9% Inj 1,000 ML IV.SIG SCH (23:30)
--- NOTE | 2018-06-28 23:31 | ED ---
HPI General Chief complaint: Medical Clearance Stated complaint: Patient states swollen feet Time Seen by Provider: 06/28/18 23:16 History of Present Illness HPI narrative: This is a 58-year-old female history of lupus, rheumatoid arthritis, cirrhosis, neuropathy. She presents for evaluation of generalized myalgias. The patient reports that she was previously on methotrexate which was discontinued in May. Since then she has been developing myalgias. She was seen [facility] on June 25, found to have rhabdomyolysis as well as elevated liver enzymes, left ama. She returned and she was admitted. She again left a today because she felt like she was not getting any answers or improvement in her symptoms. She now returns with persistent symptoms to [facility]. She reports generalized myalgias, primarily in the arms and legs, as well as flushing in the face and sensation of swelling in her lower legs. Symptoms are moderate, no obvious aggravating or relieving factors. She denies any chest pain, shortness of breath, palpitations, abdominal pain, nausea or vomiting, diarrhea or constipation. She has no other complaints at this time. Related Data Home Medications Medication Instructions Recorded Confirmed cyclobenzaprine 5 mg PO QPM 06/25/18 06/28/18 gabapentin 300 mg PO TID 06/25/18 06/28/18 hydroxychloroquine [Plaquenil] 200 mg PO DAILY 06/25/18 06/28/18 naproxen sodium [Aleve] 220 mg PO BID PRN 06/25/18 06/28/18 prednisone 5 mg PO DAILY PRN 06/25/18 06/28/18 Allergies Allergy/AdvReac Type Severity Reaction Status Date / Time azithromycin Allergy Mild numb Verified 06/28/18 21:22 codeine Allergy Mild Itching Verified 06/28/18 21:22 erythromycin base Allergy Mild numb Verified 06/28/18 21:22 Review of Systems ROS: all other systems reviewed are negative [facility] Family History Family History Other Colon cancer Dementia Social History Social History Substance History: No History of Abuse Second Hand Smoke Exposure: No Smoking Status: Current every day smoker Tobacco Type: Cigarettes How Often Do You Have a Drink Containing Alcohol: Never Recent Travel in [facility] within the Last 8 Weeks: No Recent Out of Country Travel within the Last 8 Weeks: No Exam Narrative Exam Narrative: GENERAL: Pleasant well-developed well-nourished female no acute distress SKIN: Warm and dry. Flushing is noted on the ears. HEAD: Atraumatic. Normocephalic. EYES: Pupils equal and round. No scleral icterus. No injection or drainage. ENT: No nasal bleeding or discharge. Mucous membranes pink and moist. NECK: Trachea midline. No JVD. CARDIOVASCULAR: Regular rate and rhythm. No murmur appreciated. RESPIRATORY: No accessory muscle use. Clear to auscultation. Breath sounds equal bilaterally. GASTROINTESTINAL: Abdomen soft, non-tender, nondistended. Hepatic and splenic margins not palpable. MUSCULOSKELETAL: No obvious deformities. There is 1+ pitting edema to the lower extremities bilaterally. NEUROLOGICAL: Awake and alert. No obvious cranial nerve deficits. Motor grossly within normal limits. Normal speech. Course Initial Documented Vital Signs Temperature 97.8 F 06/28/18 21:22 Pulse Rate 82 06/28/18 21:22 Respiratory Rate 18 06/28/18 21:22 Blood Pressure 161/74 H 06/28/18 21:22 Pulse Oximetry 100 06/28/18 21:22 Last Documented Vital Signs Temperature 98.1 F 07/01/18 16:00 Pulse Rate 66 07/01/18 16:00 Respiratory Rate 18 07/01/18 16:00 Blood Pressure 147/73 H 07/01/18 16:00 Pulse Oximetry 98 07/01/18 16:[address] [facility] Narrative Medical decision making narrative: This is a 58-year-old female with recent admission for rhabdomyolysis and elevated liver enzymes who presents after leaving [facility]. She plans on following through with her treatment now. Lab work is been reviewed. Potassium levels 3.1, 20 mEq oral potassium chloride administered. Liver enzymes are elevated. Total CK is At this point time the plan is to admit the patient to the hospitalist for further evaluation and treatment. Medical Screen Exam Complete: Yes Emergency Medical Condition: Yes Differential Diagnosis Differential Diagnosis: Rhabdomyolysis, myositis, renal failure, cirrhosis Lab Data Result diagrams: 06/30/18 05:15 07/01/18 05:23 Lab Results 06/28/18 06/28/18 06/28/18 Range/Units 23:35 23:35 23:35 CBC w Diff WBC 7.4 (4.0-11.0) th/mm3 RBC 3.15 L (4.00-5.30) mil/mm3 Hgb 10.5 L (11.6-15.3) gm/dL Hct 29.3 L (35.0-46.0) % MCV 92.8 (80.0-100.0) fL MCH 33.4 (27.0-34.0) pg MCHC 36.0 (32.0-36.0) % RDW 13.4 (11.6-17.2) % Plt Count 124 L (150-450) th/mm3 MPV 7.9 (7.0-11.0) fL Prelim Diff (Auto) Slide review pending Neut % (Auto) 80.5 H (16.0-70.0) % Lymph % (Auto) 13.3 (9.0-44.0) % [place] % (Auto) 5.9 (0.0-8.0) % Eos % (Auto) 0.1 (0.0-4.0) % Baso % (Auto) 0.2 (0.0-2.0) % Neut # (Auto) 6.0 (1.8-7.7) th/mm3 Lymph # (Auto) 1.0 (1.0-4.8) th/mm3 [place] # (Auto) 0.4 (0.0-0.9) th/mm3 Eos # (Auto) 0.0 (0.0-0.4) th/mm3 Baso # (Auto) 0.0 (0.0-0.2) th/mm3 WBC Differential . Diff Scan Auto diff confirmed Differential Comment . Platelet Estimate Normal (Normal) Platelet Morphology Normal (Normal) Keratocytes Occ H (None) PT 11.1 (9.8-11.6) sec INR 1.1 Ratio APTT 21.3 L (24.3-30.1) sec Sodium 140 (136-145) meq/L Potassium 3.1 L (3.5-5.1) meq/L Chloride 106 (98-107) meq/L Carbon Dioxide 27.6 (21.0-32.0) meq/L Anion Gap 6 (5-15) meq/L BUN 18 (7-18) mg/dL Creatinine 0.53 (0.50-1.00) mg/dL Estimated GFR Greater than 89 (>89) mL/min Random Glucose 105 (74-106) mg/dL Calcium 8.3 L (8.5-10.1) mg/dL Magnesium 2.2 (1.5-2.5) mg/dL Total Bilirubin 0.2 (0.2-1.0) mg/dL AST 1480 H (15-37) U/L ALT 411 H (10-53) U/L Alkaline Phosphatase 53 (45-117) U/L Total Creatine Kinase 77447 H (26-192) U/L CK-MB (CK-2) 141.1 H (0.5-3.6) ng/mL CK-MB (CK-2) % 0.4 (0.0-4.0) % Total Protein 7.0 (6.4-8.2) g/dL Albumin 2.8 L (3.4-5.0) g/dL 06/30/18 06/30/18 07/01/18 Range/Units 05:15 05:15 05:23 CBC w Diff Auto diff final WBC 5.6 (4.0-11.0) th/mm3 RBC 2.96 L (4.00-5.30) mil/mm3 Hgb 9.7 L (11.6-15.3) gm/dL Hct 28.4 L (35.0-46.0) % MCV 96.0 (80.0-100.0) fL MCH 32.7 (27.0-34.0) pg MCHC 34.1 (32.0-36.0) % RDW 13.4 (11.6-17.2) % Plt Count 128 L (150-450) th/mm3 MPV 7.8 (7.0-11.0) fL Prelim Diff (Auto) Neut % (Auto) 75.7 H (16.0-70.0) % Lymph % (Auto) 18.9 (9.0-44.0) % [place] % (Auto) 5.1 (0.0-8.0) % Eos % (Auto) 0.0 (0.0-4.0) % Baso % (Auto) 0.3 (0.0-2.0) % Neut # (Auto) 4.2 (1.8-7.7) th/mm3 Lymph # (Auto) 1.1 (1.0-4.8) th/mm3 [place] # (Auto) 0.3 (0.0-0.9) th/mm3 Eos # (Auto) 0.0 (0.0-0.4) th/mm3 Baso # (Auto) 0.0 (0.0-0.2) th/mm3 WBC Differential . Diff Scan Differential Comment . Platelet Estimate (Normal) Platelet Morphology (Normal) Keratocytes (None) PT (9.8-11.6) sec INR Ratio APTT (24.3-30.1) sec Sodium 139 138 (136-145) meq/L Potassium 3.6 3.3 L (3.5-5.1) meq/L Chloride 105 104 (98-107) meq/L Carbon Dioxide 26.5 27.2 (21.0-32.0) meq/L Anion Gap 8 7 (5-15) meq/L BUN 20 H 20 H (7-18) mg/dL Creatinine 0.40 L 0.48 L (0.50-1.00) mg/dL Estimated GFR Greater than 89 Greater than 89 (>89) mL/min Random Glucose 126 H 116 H (74-106) mg/dL Calcium 8.0 L 7.9 L (8.5-10.1) mg/dL Magnesium (1.5-2.5) mg/dL Total Bilirubin 0.3 0.3 (0.2-1.0) mg/dL AST 693 H 434 H (15-37) U/L ALT 319 H 285 H (10-53) U/L Alkaline Phosphatase 45 46 (45-117) U/L Total Creatine Kinase 00211 H 8939 H (26-192) U/L CK-MB (CK-2) 54.9 H 41.9 H (0.5-3.6) ng/mL CK-MB (CK-2) % 0.4 0.5 (0.0-4.0) % Total Protein 6.4 D 6.7 (6.4-8.2) g/dL Albumin 2.5 L 2.7 L (3.4-5.0) g/dL Discharge Plan Discharge Disposition Patient Disposition: 30 Still Patient Discharge Condition Condition: Stable Discharge Details Diagnosis: Rhabdomyolysis, Elevated liver enzymes Physicians Team ED Provider: Amando Dunbar ED Midlevel Provider: Jaime Drake Primary Care Provider: Joyce Jose Attending Provider: Laura Dsouza Other Providers: Kacey Erazo ; Shoaib Palacios Status ED Status: Left Department Discharge Information Discharge Date/Time: 06/29/18 09:03
[2018-06-28 23:48] LABS: Baso % (Auto) 0.2 % (0.0-2.0); Eos % (Auto) 0.1 % (0.0-4.0); Hematocrit 29.3 % (35.0-46.0); Hemoglobin 10.5 gm/dL (11.6-15.3); Lymph % (Auto) 13.3 % (9.0-44.0); Mean Corpuscular Hemoglobin 33.4 pg (27.0-34.0); Mean Corpuscular Volume 92.8 fL (80.0-100.0); Mean Platelet Volume 7.9 fL (7.0-11.0); Mono # (Auto) 0.4 th/mm3 (0.0-0.9); Mono % (Auto) 5.9 % (0.0-8.0); Neut % (Auto) 80.5 % (16.0-70.0); Platelet Count 124 th/mm3 (150-450); Red Blood Count 3.15 mil/mm3 (4.00-5.30); Red Cell Distribution Width 13.4 % (11.6-17.2); White Blood Count 7.4 th/mm3 (4.0-11.0)
[2018-06-29 00:01] LABS: Activated Partial Thrombo Time 21.3 sec (24.3-30.1); INR 1.1 Ratio; Prothrombin Time 11.1 sec (9.8-11.6)
[2018-06-29 00:08] LABS: Alanine Aminotransferase 411 U/L (10-53); Albumin 2.8 g/dL (3.4-5.0); Anion Gap 6 meq/L (5-15); Blood Urea Nitrogen 18 mg/dL (7-18); Calcium 8.3 mg/dL (8.5-10.1); Carbon Dioxide 27.6 meq/L (21.0-32.0); Chloride 106 meq/L (98-107); Glomerular Filtration Rate Greater Than 89 mL/min (>89); Glucose,Random 105 mg/dL (74-106); Magnesium 2.2 mg/dL (1.5-2.5); Potassium 3.1 meq/L (3.5-5.1); Sodium 140 meq/L (136-145)
[2018-06-29 00:22] LABS: Platelet Estimate Normal (Normal); Platelet Morphology Normal (Normal)
[2018-06-29 00:33] LABS: Alkaline Phosphatase 53 U/L (45-117); Aspartate Aminotransferase 1480 U/L (15-37)
[2018-06-29 00:59] LABS: Creatine Kinase 35622 U/L (26-192)
[2018-06-29 01:20] LABS: CKMB Percent 0.4 % (0.0-4.0); Creatine Kinase MB 141.1 ng/mL (0.5-3.6)
[2018-06-29] MEDS ORDERED: Bisacodyl 10 MG Supp RECTAL PRN (02:45)
--- NOTE | 2018-06-29 02:55 | P.HP ---
History of Present Illness Service: [facility] Primary Care Physician: Joyce Jose MD History of Present Illness: 58-year-old female with past medical history significant for RA, lupus, AAA and neuropathy presents to the emergency department for further evaluation of her rhabdomyolysis and cirrhosis. The patient left AGAINST MEDICAL ADVICE from [facility] yesterday because she felt that she was not getting the information she deemed necessary to continue her treatment there. She went home and reports that she continued drinking water to help with her previous diagnosis of rhabdo however yesterday evening developed swollen feet, red ears, facial flushing and leg stiffness. She returned to the emergency department for further evaluation. CPK was greater than 35,000 on arrival to the emergency department. She was previously treated with IV steroids at the suggestion of her manager primary care. She was also evaluated by gastroenterology and diagnosed with cirrhosis. Ursodiol was started and the patient has a follow-up with gastroenterology next week to discuss possible liver biopsy. Patient denies any chest pain or shortness of breath. No fever/chills. No abdominal pain. No nausea/vomiting/diarrhea. No lateralizing signs/symptoms. Inpatient Certification: I certify that the inpatient services were ordered in accordance with Medicare regulations governing the order. This includes certification that hospital inpatient services are reasonable and necessary and in the case of services not specified as inpatient-only under 42 CFR 419.22(n), that they are appropriately provided as inpatient services in accordance to with the 2-midnight benchmark under 43 CFR 412.3(e) Estimated Total Length of Stay (Days): 2 Plans for Post Hospital Care: Not yet determined Review of Systems All other systems reviewed negative except as stated in HPI [facility] - History History Provided By: Patient - Medical History Medical History: Medical History (Last Updated 06/29/18 @ 02:51 by Soledad Og MD) Neuropathy Rheumatoid arthritis AAA (abdominal aortic aneurysm) Cirrhosis of liver Cubital tunnel syndrome on left Dry eye syndrome of both eyes Lupus Normal colonoscopy Osteoporosis Polymyositis - Surgical History Surgical History: Surgical History (Last Updated 06/29/18 @ 02:51 by Soledad Og MD) History of carpal tunnel release History of delivery - Family History Family History: Family History (Last Updated 06/29/18 @ 02:52 by Soledad Og MD) Other Colon cancer Dementia - Tobacco History Second Hand Smoke Exposure: Yes Tobacco Use In Past 30 Days: Yes Smoking Status: Current every day smoker Tobacco Type: Cigarettes - Alcohol History How Often Do You Have a Drink Containing Alcohol: Never - Substance Use History Substance History: No History of Abuse - Travel History Recent Travel in the [place] Within the Last 8 Weeks: No Recent Travel Out of the Country Within the Last 8 Weeks: No - Immunization History Tetanus Immunization: Unsure Medications and Allergies Active Medications: Active Medications Sodium Chloride (Ns Inj) 1,000 mls @ 0 mls/hr IV.SIG BOLUS CARRINGTON Last Infusion: 06/29/18 01:02 Dose: Infused Allergies Allergy/AdvReac Type Severity Reaction Status Date / Time azithromycin Allergy Mild numb Verified 06/28/18 21:22 codeine Allergy Mild Itching Verified 06/28/18 21:22 erythromycin base Allergy Mild numb Verified 06/28/18 21:22 Home Medications Medication Instructions Recorded Confirmed Type cyclobenzaprine 5 mg PO QPM 06/25/18 06/28/18 History gabapentin 300 mg PO TID 06/25/18 06/28/18 History hydroxychloroquine [Plaquenil] 200 mg PO DAILY 06/25/18 06/28/18 History naproxen sodium [Aleve] 220 mg PO BID PRN 06/25/18 06/28/18 History prednisone 5 mg PO DAILY PRN 06/25/18 06/28/18 History Exam Vital signs: Vital Signs 06/28/18 21:22 Temperature 97.8 F Pulse Rate 82 Respiratory Rate 18 Blood Pressure 161/74 H Pulse Oximetry 100 Intake & Output 06/28/18 06/28/18 06/29/18 06:59 18:59 06:59 Intake Total 1000 / 1000 Balance 1000 / 1000 Weight 55.792 kg Intake: IV 1000 / 1000 NS Inj 1,000 ML @ Wide Open IV. 1000 / 1000 SIG BOLUS CARRINGTON Rx#:[id number] Narrative: Gen.: No acute distress Head: Normocephalic. Atraumatic. EENT: Pupils equal round and reactive to light. Nose without drainage. Airway intact. Throat without injection. Cardiovascular: Regular rate and rhythm. No murmurs, rubs or gallops. Respiratory: Lungs clear to auscultation bilaterally. No wheezes or rhonchi. Abdomen: Soft, nontender, nondistended. No peritoneal signs. Musculoskeletal: No gross deformities. No edema. Skin: No obvious rashes or erythema. Neuro: Sensory and motor grossly intact. Cranial nerves II through XII grossly intact. Results - Labs CBC & Chem 7: 06/28/18 23:35 06/28/18 23:35 Labs: Laboratory Results - last 24 hr 06/28/18 06/28/18 06/28/18 23:35 23:35 23:35 WBC 7.4 RBC 3.15 L Hgb 10.5 L Hct 29.3 L MCV 92.8 MCH 33.4 MCHC 36.0 RDW 13.4 Plt Count 124 L MPV 7.9 Prelim Diff (Auto) Slide review pending Neut % (Auto) 80.5 H Lymph % (Auto) 13.3 [place] % (Auto) 5.9 Eos % (Auto) 0.1 Baso % (Auto) 0.2 Neut # (Auto) 6.0 Lymph # (Auto) 1.0 [place] # (Auto) 0.4 Eos # (Auto) 0.0 Baso # (Auto) 0.0 WBC Differential . Diff Scan Auto diff confirmed Differential Comment . Platelet Estimate Normal Platelet Morphology Normal Keratocytes Occ H PT 11.1 INR 1.1 APTT 21.3 L Sodium 140 Potassium 3.1 L Chloride 106 Carbon Dioxide 27.6 Anion Gap 6 BUN 18 Creatinine 0.53 Estimated GFR Greater than 89 Random Glucose 105 Calcium 8.3 L Magnesium 2.2 Total Bilirubin 0.2 AST 1480 H ALT 411 H Alkaline Phosphatase 53 Total Creatine Kinase 08628 H CK-MB (CK-2) 141.1 H CK-MB (CK-2) % 0.4 Total Protein 7.0 Albumin 2.8 L Caprini VTE Risk Assessment Caprini VTE Risk Assessment: No/Low Risk (score <= 1) Caprini Risk Assessment Model: Point Value = 1 Point Value = 2 Point Value = 3 Point Value = 5 Age 41-60 Minor surgery BMI > 25 kg/m2 Swollen legs Varicose veins or History of unexplained or recurrent spontaneous Oral contraceptives or hormone replacement Sepsis (< 1 month) Serious lung disease, including pneumonia (< 1 month) Abnormal pulmonary function Acute myocardial infarction Congestive heart failure (< 1 month) History of inflammatory bowel disease Medical patient at bed rest Age 61-74 Arthroscopic surgery Major open surgery (> 45 min) Laparoscopic surgery (> 45 min) Malignancy Confined to bed (> 72 hours) Immobilizing plaster cast Central venous access Age >= 75 History of VTE Family history of VTE Factor V Leiden Prothrombin [id number] Lupus anticoagulant Anticardiolipin antibodies Elevated serum homocysteine Heparin-induced thrombocytopenia Other congenital or acquired thrombophilia Stroke (< 1 month) Elective arthroplasty Hip, pelvis, or leg fracture Acute spinal cord injury (< 1 month) Prophylaxis Regimen: Total Risk Factor Score Risk Level Prophylaxis Regimen 0-1 Low Early ambulation 2 Moderate Order ONE of the following: *Sequential Compression Device (SCD) *Heparin 5000 units SQ BID 3-4 Higher Order ONE of the following medications: *Heparin 5000 units SQ TID *Enoxaparin/Lovenox 40 mg SQ daily (WT < 150 kg, CrCl > 30 mL/min) *Enoxaparin/Lovenox 30 mg SQ daily (WT < 150 kg, CrCl > 10-29 mL/min) *Enoxaparin/Lovenox 30 mg SQ BID (WT < 150 kg, CrCl > 30 mL/min) AND/OR *Sequential Compression Device (SCD) 5 or more Highest Order ONE of the following medications: *Heparin 5000 units SQ TID (Preferred with Epidurals) *Enoxaparin/Lovenox 40 mg SQ daily (WT < 150 kg, CrCl > 30 mL/min) *Enoxaparin/Lovenox 30 mg SQ daily (WT < 150 kg, CrCl > 10-29 mL/min) *Enoxaparin/Lovenox 30 mg SQ BID (WT < 150 kg, CrCl > 30 mL/min) AND *Sequential Compression Device (SCD) Assessment and Plan - Plan Assessment/plan: 1. Rhabdomyolysis Continue IV fluid hydration Monitor renal function and CPK 2. Cirrhosis Hepatitis panel done at [place] negative Gastroenterology consulted, started on ursodiol Follow-up with gastroenterology as an outpatient for possible liver biopsy Taken off methotrexate a few weeks ago 3. Lupus/RA Holding Plaquenil During patient's hospitalization in [place], her manager primary care, Dr. Loredo, was contacted and recommended IV Solu-Medrol which was started on Continue IV Solu-Medrol 4. Neuropathy Continue gabapentin 5. Hypokalemia Status post p.o. repletion Monitor BMP FEN Heart healthy diet Electrolytes: As above NS at 125 cc/hour
[2018-06-29] MEDS ORDERED: Sodium Chloride 0.9% 2 ML Flush PRN IV.FLUSH (02:58)
[2018-06-29] MEDS: Sod Chloride 0.9% Inj 1,000 ML IV.CONT SCH ×3 (04:37→20:45)
[2018-06-29] MEDS: MethylPREDNISolone Sod Succinate Inj 40 MG/ML Vial IV.PUSH SCH ×4 (06:06→21:55)
[2018-06-29] MEDS: Senna/Docusate Sodium 8.6/50 MG Tablet PO SCH ×2 (08:10→20:45)
[2018-06-29] MEDS: Gabapentin 300 MG Capsule PO SCH ×3 (08:10→20:44)
[2018-06-29] MEDS: Sodium Chloride 0.9% 2 ML Flush BID IV.FLUSH SCH ×2 (08:10→21:55)
--- NOTE | 2018-06-29 09:54 | ECG ---
Date Performed: 06/28/2018 Time Performed: 23:47:28 PTAGE: 58 years EKG: Sinus rhythm NORMAL ECG PREVIOUS TRACING : 06/25/2018 05.19 I see no definite changes although prior EKG has marked art ifact. DOCTOR: Kyle Garcia Interpretating Date/Time 06/29/2018 09:53:58
--- NOTE | 2018-06-29 11:25 | P.PNIM ---
Subjective Interval history: f/u; rhabdomyolysis/ elevated LFT's in no acute distress. complaining of some muscle pain/ stiffness lower extremities. no abdominal pain. Physical Exam Vital signs: Vital Signs 06/28/18 21:22 06/29/18 03:00 06/29/18 08:05 Temperature 97.8 F Pulse Rate 82 79 63 Respiratory Rate 18 15 17 Blood Pressure 161/74 H 112/68 169/79 H Pulse Oximetry 100 96 97 Intake & Output 06/28/18 06/29/18 06/29/18 18:59 06:59 18:59 Intake Total 1000 / 1000 Balance 1000 / 1000 Weight 55.792 kg Intake: IV 1000 / 1000 NS Inj 1,000 ML @ Wide Open IV. 1000 / 1000 SIG BOLUS CARRINGTON Rx#:[id number] - Constitutional no acute distress - Routine Respiratory Exam Present: CTA bilaterally - Routine Cardiovascular Exam Present: RRR - Routine Abdominal Exam Present: soft - Routine Extremities Exam Comments: mild muscle stiffness-lower extremities. - Routine Neurological Exam Present: alert, oriented X3 Results - Labs CBC & Chem 7: 06/28/18 23:35 06/28/18 23:35 Laboratory Results - last 24 hr 06/28/18 06/28/18 06/28/18 23:35 23:35 23:35 WBC 7.4 RBC 3.15 L Hgb 10.5 L Hct 29.3 L MCV 92.8 MCH 33.4 MCHC 36.0 RDW 13.4 Plt Count 124 L MPV 7.9 Prelim Diff (Auto) Slide review pending Neut % (Auto) 80.5 H Lymph % (Auto) 13.3 [place] % (Auto) 5.9 Eos % (Auto) 0.1 Baso % (Auto) 0.2 Neut # (Auto) 6.0 Lymph # (Auto) 1.0 [place] # (Auto) 0.4 Eos # (Auto) 0.0 Baso # (Auto) 0.0 WBC Differential . Diff Scan Auto diff confirmed Differential Comment . Platelet Estimate Normal Platelet Morphology Normal Keratocytes Occ H PT 11.1 INR 1.1 APTT 21.3 L Sodium 140 Potassium 3.1 L Chloride 106 Carbon Dioxide 27.6 Anion Gap 6 BUN 18 Creatinine 0.53 Estimated GFR Greater than 89 Random Glucose 105 Calcium 8.3 L Magnesium 2.2 Total Bilirubin 0.2 AST 1480 H ALT 411 H Alkaline Phosphatase 53 Total Creatine Kinase 29656 H CK-MB (CK-2) 141.1 H CK-MB (CK-2) % 0.4 Total Protein 7.0 Albumin 2.8 L Assessment and Plan - Plan 1. Rhabdomyolysis Continue IV fluid hydration Monitor renal function and CPK 2. Cirrhosis Hepatitis panel done at [place] negative Gastroenterology consulted, started on ursodiol Taken off methotrexate a few weeks ago 3. Lupus/RA Holding Plaquenil Continue IV Solu-Medrol 4. Neuropathy Continue gabapentin 5. Hypokalemia Status post p.o. repletion Monitor BMP Discharge Planning: in 2-3 days if stable.
[2018-06-30] MEDS: Sod Chloride 0.9% Inj 1,000 ML IV.CONT SCH ×3 (02:48→20:37)
[2018-06-30] MEDS: MethylPREDNISolone Sod Succinate Inj 40 MG/ML Vial IV.PUSH SCH ×4 (04:47→21:20)
[2018-06-30 06:48] LABS: Baso % (Auto) 0.3 % (0.0-2.0); Hematocrit 28.4 % (35.0-46.0); Hemoglobin 9.7 gm/dL (11.6-15.3); Lymph # (Auto) 1.1 th/mm3 (1.0-4.8); Lymph % (Auto) 18.9 % (9.0-44.0); Mean Corpuscular HGB Conc 34.1 % (32.0-36.0); Mean Corpuscular Hemoglobin 32.7 pg (27.0-34.0); Mean Platelet Volume 7.8 fL (7.0-11.0); Mono # (Auto) 0.3 th/mm3 (0.0-0.9); Mono % (Auto) 5.1 % (0.0-8.0); Neut # (Auto) 4.2 th/mm3 (1.8-7.7); Neut % (Auto) 75.7 % (16.0-70.0); Platelet Count 128 th/mm3 (150-450); Red Blood Count 2.96 mil/mm3 (4.00-5.30); Red Cell Distribution Width 13.4 % (11.6-17.2); White Blood Count 5.6 th/mm3 (4.0-11.0)
[2018-06-30 07:02] LABS: Chloride 105 meq/L (98-107); Potassium 3.6 meq/L (3.5-5.1); Sodium 139 meq/L (136-145)
[2018-06-30 07:10] LABS: Albumin 2.5 g/dL (3.4-5.0); Anion Gap 8 meq/L (5-15); Blood Urea Nitrogen 20 mg/dL (7-18); Carbon Dioxide 26.5 meq/L (21.0-32.0); Glucose,Random 126 mg/dL (74-106)
[2018-06-30 07:13] LABS: Alanine Aminotransferase 319 U/L (10-53); Aspartate Aminotransferase 693 U/L (15-37); Glomerular Filtration Rate Greater Than 89 mL/min (>89)
[2018-06-30 07:14] LABS: Total Protein 6.4 g/dL (6.4-8.2)
[2018-06-30 07:15] LABS: Alkaline Phosphatase 45 U/L (45-117)
[2018-06-30 07:38] LABS: Creatine Kinase 12278 U/L (26-192)
[2018-06-30 08:00] LABS: CKMB Percent 0.4 % (0.0-4.0); Creatine Kinase MB 54.9 ng/mL (0.5-3.6)
[2018-06-30] MEDS: Senna/Docusate Sodium 8.6/50 MG Tablet PO SCH ×2 (08:15→20:36)
[2018-06-30] MEDS: Gabapentin 300 MG Capsule PO SCH ×3 (08:15→17:35)
[2018-06-30] MEDS: Sodium Chloride 0.9% 2 ML Flush BID IV.FLUSH SCH ×2 (08:16→20:38)
--- NOTE | 2018-06-30 10:53 | P.PNIM ---
Subjective Interval history: f/u; rhabdomyolysis in no acute distress. feels somewhat weak. no abdominal pain. Physical Exam Vital signs: Vital Signs 06/29/18 12:00 06/29/18 15:55 06/29/18 20:00 Temperature 97.0 F L 98.0 F 96.6 F L Pulse Rate 74 76 69 Respiratory Rate 18 18 20 Blood Pressure 178/78 H 136/77 165/72 H Pulse Oximetry 98 97 99 06/30/18 00:00 06/30/18 04:00 06/30/18 08:00 Temperature 96.2 F L 96.4 F L 97.4 F L Pulse Rate 67 75 58 L Respiratory Rate 20 20 20 Blood Pressure 154/84 H 118/56 L 160/69 H Pulse Oximetry 97 97 100 Intake & Output 06/29/18 06/30/18 06/30/18 18:59 06:59 18:59 Intake Total 1000 / 1000 2360 / 2360 Balance 1000 / 1000 2360 / 2360 Weight 63.1 kg Intake: IV 1000 / 1000 1999 / 1999 NS Inj 1,000 ML @ 125 mls/hr IV 1000 / 1000 1999 .CONT .Q8H [facility] Rx#:[id number] Oral 360 / 360 Other: # Voids 3 2 # Bowel Movements 1 - Constitutional no acute distress - Routine Respiratory Exam Present: CTA bilaterally - Routine Cardiovascular Exam Present: RRR - Routine Abdominal Exam Present: soft - Routine Extremities Exam Comments: no pedal edema. - Routine Neurological Exam Present: alert, oriented X3 Results - Labs CBC & Chem 7: 06/30/18 05:15 06/30/18 05:15 Laboratory Results - last 24 hr 06/30/18 06/30/18 05:15 05:15 CBC w Diff Auto diff final WBC 5.6 RBC 2.96 L Hgb 9.7 L Hct 28.4 L MCV 96.0 MCH 32.7 MCHC 34.1 RDW 13.4 Plt Count 128 L MPV 7.8 Neut % (Auto) 75.7 H Lymph % (Auto) 18.9 [place] % (Auto) 5.1 Eos % (Auto) 0.0 Baso % (Auto) 0.3 Neut # (Auto) 4.2 Lymph # (Auto) 1.1 [place] # (Auto) 0.3 Eos # (Auto) 0.0 Baso # (Auto) 0.0 WBC Differential . Differential Comment . Sodium 139 Potassium 3.6 Chloride 105 Carbon Dioxide 26.5 Anion Gap 8 BUN 20 H Creatinine 0.40 L Estimated GFR Greater than 89 Random Glucose 126 H Calcium 8.0 L Total Bilirubin 0.3 AST 693 H ALT 319 H Alkaline Phosphatase 45 Total Creatine Kinase 57538 H CK-MB (CK-2) 54.9 H CK-MB (CK-2) % 0.4 Total Protein 6.4 D Albumin 2.5 L Assessment and Plan - Plan 1. Rhabdomyolysis- improving. Continue IV fluid hydration Monitor renal function and CPK 2. Cirrhosis Hepatitis panel done at [place] negative Gastroenterology consulted, started on ursodiol Taken off methotrexate a few weeks ago 3. Lupus/RA Holding Plaquenil Continue IV Solu-Medrol 4. Neuropathy Continue gabapentin 5. Hypokalemia-replaced. Monitor BMP Discharge Planning: in 2-3 days if stable.
--- NOTE | 2018-06-30 10:55 | P.DCO ---
- Physical Therapy Order: Evaluate and treat - Home Health Nursing Order: Medical education, Signs/symptoms of disease process, Medication education-adverse effect - Case Management Consult Yes - Certification I have seen patient Sheridan Rocha on 06/30/18. My clinical findings support the need for the requested home health care services because: Limited mobility due to disease progression I certify that my clinical findings support that this patient is homebound because: Unsteady gait/balance
[2018-07-01] MEDS: Sod Chloride 0.9% Inj 1,000 ML IV.CONT SCH ×3 (04:01→21:21)
[2018-07-01] MEDS: MethylPREDNISolone Sod Succinate Inj 40 MG/ML Vial IV.PUSH SCH ×3 (05:14→21:22)
[2018-07-01 06:52] LABS: Chloride 104 meq/L (98-107); Potassium 3.3 meq/L (3.5-5.1); Sodium 138 meq/L (136-145)
[2018-07-01 07:03] LABS: Calcium 7.9 mg/dL (8.5-10.1)
[2018-07-01 07:04] LABS: Albumin 2.7 g/dL (3.4-5.0); Anion Gap 7 meq/L (5-15); Blood Urea Nitrogen 20 mg/dL (7-18); Carbon Dioxide 27.2 meq/L (21.0-32.0); Glucose,Random 116 mg/dL (74-106)
[2018-07-01 07:05] LABS: Alanine Aminotransferase 285 U/L (10-53); Aspartate Aminotransferase 434 U/L (15-37); Glomerular Filtration Rate Greater Than 89 mL/min (>89)
[2018-07-01 07:06] LABS: Total Protein 6.7 g/dL (6.4-8.2)
[2018-07-01 07:07] LABS: Alkaline Phosphatase 46 U/L (45-117)
[2018-07-01 07:30] LABS: Creatine Kinase 8939 U/L (26-192)
[2018-07-01 07:46] LABS: CKMB Percent 0.5 % (0.0-4.0); Creatine Kinase MB 41.9 ng/mL (0.5-3.6)
[2018-07-01] MEDS: Senna/Docusate Sodium 8.6/50 MG Tablet PO SCH ×2 (08:37→20:52)
[2018-07-01] MEDS: Gabapentin 300 MG Capsule PO SCH ×3 (08:37→18:19)
[2018-07-01] MEDS: Sodium Chloride 0.9% 2 ML Flush BID IV.FLUSH SCH ×2 (08:38→20:53)
--- NOTE | 2018-07-01 09:42 | P.PNIM ---
Subjective Interval history: f/u; rhabdomyolysis in no acute distress. says that she's improving and feeling better. no new complaints. Physical Exam Vital signs: Vital Signs 06/30/18 12:00 06/30/18 16:00 06/30/18 20:00 Temperature 98.2 F 97.5 F L 97.9 F Pulse Rate 75 55 L 70 Respiratory Rate 20 20 18 Blood Pressure 163/79 H 144/69 H 159/80 H Pulse Oximetry 96 99 94 L 07/01/18 00:00 07/01/18 08:00 Temperature 98.3 F 97.5 F L Pulse Rate 72 65 Respiratory Rate 18 18 Blood Pressure 158/80 H 179/82 H Pulse Oximetry 95 99 Intake & Output 06/30/18 07/01/18 07/01/18 18:59 06:59 18:59 Intake Total 1240 / 1240 1999 Balance 1240 / 1240 1999 Weight 63 kg Intake: IV 1000 / 1000 1999 NS Inj 1,000 ML @ 125 mls/hr IV 1000 / 1000 1999 .CONT .Q8H [facility] [place] Rx#:[id number] Oral 240 / 240 Other: # Voids 3 2 # Bowel Movements 1 - Constitutional no acute distress - Routine Respiratory Exam Present: CTA bilaterally - Routine Cardiovascular Exam Present: RRR - Routine Abdominal Exam Present: soft - Routine Extremities Exam Comments: no pedal edema.stiffness lower extremities improving. - Routine Neurological Exam Present: alert, oriented X3 Results - Labs CBC & Chem 7: 06/30/18 05:15 07/01/18 05:23 Laboratory Results - last 24 hr 07/01/18 05:23 Sodium 138 Potassium 3.3 L Chloride 104 Carbon Dioxide 27.2 Anion Gap 7 BUN 20 H Creatinine 0.48 L Estimated GFR Greater than 89 Random Glucose 116 H Calcium 7.9 L Total Bilirubin 0.3 AST 434 H ALT 285 H Alkaline Phosphatase 46 Total Creatine Kinase 8939 H CK-MB (CK-2) 41.9 H CK-MB (CK-2) % 0.5 Total Protein 6.7 Albumin 2.7 L Assessment and Plan - Plan 1. Rhabdomyolysis- improving. Continue IV fluid hydration Monitor renal function and CPK 2. Cirrhosis Hepatitis panel done at [employer] negative Gastroenterology consulted, started on ursodiol Taken off methotrexate a few weeks ago 3. Lupus/RA Holding Plaquenil Continue IV Solu-Medrol 4. Neuropathy Continue gabapentin 5. Hypokalemia-will replace. Monitor BMP Discharge Planning: in 1-2 days if stable. case management consulted for C.
--- NOTE | 2018-07-01 19:20 | MB ---
cc: Shoaib Palacios MD DATE: 07/01/2018 REASON FOR CONSULTATION: Liver cirrhosis, elevated LFTs. 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 In a recent evaluation for an aortic aneurysm, she underwent imaging test which showed possibility of a nodular liver, suspicious for liver cirrhosis. Due to the liver cirrhosis findings, appropriately so, the methotrexate was discontinued. Since that time, she believes that 4-6 weeks ago, she began having aches and pains in her lower extremity. She recently came to the hospital on 06/27/2018 for similar issues, was diagnosed with rhabdomyolysis. She was started on appropriate treatment, but at that time left against medical advice. During that admission, her LFTs were also elevated, but we were able to order some extra lab work, which returned back negative for hepatitis. Her autoimmune markers, specifically antimitochondrial antibody, was noted to be significantly positive indicating that there may be an element of primary biliary cirrhosis, although her lab values do not clearly correlate. Given her autoimmune condition such as lupus, rheumatoid arthritis, and this muscle injury, there is certainly a possibility of a falsely-elevated antibody. The fact is she was started on Actigall, which could help primary biliary cirrhosis, but it is likely not going to cause any harm. She returned to the hospital several days later, still continued to feel unwell, having worsening of muscle aches and pain. She continued to have rhabdomyolysis symptoms and therefore she has been in the hospital getting treated for this, which includes significant IV hydration. Overall, her liver enzyme trend has been improving. When she came into the hospital on , her AST, ALT were 1959 and 398 respectively and they currently decreased down to AST 434 and ALT 285, with an alkaline phosphatase 46. CPK was greater than 14,000, has decreased down to 8939. Her Tylenol levels were less than 2. INR 1.1. Total bilirubin of 0.3. GI was reconsulted to see any new changes in her management. PAST MEDICAL HISTORY: Rheumatoid arthritis, Sjogren syndrome, lupus, history of aortic aneurysm, hypertension, recent diagnosis of liver cirrhosis, and polymyositis. PAST SURGICAL HISTORY: Appendectomy, . ALLERGIES: AZITHROMYCIN, CODEINE, ERYTHROMYCIN. HOME MEDICATIONS: Plaquenil, Neurontin. FAMILY HISTORY: Mother had a history of colon polyps and colon cancer, recently . SOCIAL HISTORY: States she used to drink socially in the distant past, drinks very rarely. Smokes tobacco regularly. REVIEW OF SYSTEMS: A 12-point review of systems was obtained, which was negative or noncontributory except as mentioned in the HPI. LABORATORY VALUES: As mentioned above. ASSESSMENT AND IMPRESSION: 1. Rhabdomyolysis, clinically improving. 2. Elevated liver function tests are likely secondary to the muscle injury and less likely secondary to acute liver injury. On current treatment, her AST and ALT are improving significantly, indicating likely the cause was muscle injury. 3. Liver cirrhosis, may be multifactorial. It currently appears to be very stable and is not in any decompensation. Etiology may be multifactorial in origin. Will need further evaluation outpatient, such as a liver biopsy to evaluate the severity of the liver disease, but again does not need any urgent workup. Therefore, I would agree with your continued management for the rhabdomyolysis and patient, I believe, has already an appointment to follow up with us in the office sometime in early July, which I have told her to keep. Thank you for allowing us to participate in the care of the patient. Please do not hesitate to contact us for any further issues. Shoaib Palacios MD KRP/ernie , 03:34 PM , 03:48 PM
[2018-07-01 22:24] VITALS: RESP 20
[2018-07-02] MEDS: Sod Chloride 0.9% Inj 1,000 ML IV.CONT SCH ×5 (02:16→20:28)
[2018-07-02] MEDS: MethylPREDNISolone Sod Succinate Inj 40 MG/ML Vial IV.PUSH SCH ×3 (05:31→20:30)
[2018-07-02 07:42] LABS: Chloride 104 meq/L (98-107); Potassium 3.4 meq/L (3.5-5.1); Sodium 139 meq/L (136-145)
[2018-07-02 07:45] LABS: Calcium 7.8 mg/dL (8.5-10.1)
[2018-07-02 07:46] LABS: Albumin 2.8 g/dL (3.4-5.0); Anion Gap 7 meq/L (5-15); Blood Urea Nitrogen 16 mg/dL (7-18); Carbon Dioxide 28.3 meq/L (21.0-32.0); Glucose,Random 113 mg/dL (74-106)
[2018-07-02 07:49] LABS: Alanine Aminotransferase 244 U/L (10-53); Aspartate Aminotransferase 292 U/L (15-37); Glomerular Filtration Rate Greater Than 89 mL/min (>89)
[2018-07-02 07:51] LABS: Total Protein 6.6 g/dL (6.4-8.2)
[2018-07-02 07:52] LABS: Alkaline Phosphatase 44 U/L (45-117)
[2018-07-02] MEDS: Sodium Chloride 0.9% 2 ML Flush BID IV.FLUSH SCH ×2 (07:59→20:28)
[2018-07-02] MEDS: Senna/Docusate Sodium 8.6/50 MG Tablet PO SCH ×2 (07:59→20:29)
[2018-07-02] MEDS: Gabapentin 300 MG Capsule PO SCH ×3 (07:59→17:34)
[2018-07-02 08:04] LABS: Creatine Kinase 6261 U/L (26-192)
[2018-07-02 08:19] LABS: CKMB Percent 0.5 % (0.0-4.0); Creatine Kinase MB 31.9 ng/mL (0.5-3.6)
--- NOTE | 2018-07-02 09:18 | P.PNIM ---
Subjective Interval history: f/u; rhabdomyolysis in no acute distress. no new complaints. Physical Exam Vital signs: Vital Signs 07/01/18 11:56 07/01/18 12:26 07/01/18 16:00 Temperature 97.4 F L 98.1 F Pulse Rate 67 66 Respiratory Rate 18 20 18 Blood Pressure 188/80 H 147/73 H Pulse Oximetry 98 98 07/01/18 20:00 07/02/18 00:00 07/02/18 04:00 Temperature 96.7 F L 97.3 F L 97.5 F L Pulse Rate 69 64 69 Respiratory Rate 20 20 20 Blood Pressure 173/83 H 145/69 H 156/69 H Pulse Oximetry 99 98 99 Intake & Output 07/01/18 07/02/18 07/02/18 18:59 06:59 18:59 Intake Total 2240 / 2240 1480 / 1480 1000 / 1000 Output Total Balance 2239 / 2239 1480 / 1480 1000 / 1000 Weight 63.1 kg Intake: IV 1999 1000 / 1000 1000 / 1000 NS Inj 1,000 ML @ 125 mls/hr IV 1999 / 1999 1000 / 1000 1000 / 1000 .CONT .Q8H [facility] Rx#:[id number] Oral 240 / 240 480 / 480 Output: Stool Other: # Voids 2 3 Date of Last Bowel Movement 07/01/18 # Bowel Movements 1 - Constitutional no acute distress - Routine Respiratory Exam Present: CTA bilaterally - Routine Cardiovascular Exam Present: RRR - Routine Abdominal Exam Present: soft - Routine Extremities Exam Comments: no pedal edema. - Routine Neurological Exam Present: alert, oriented X3 Results - Labs CBC & Chem 7: 06/30/18 05:15 07/02/18 06:45 Laboratory Results - last 24 hr 07/02/18 06:45 Sodium 139 Potassium 3.4 L Chloride 104 Carbon Dioxide 28.3 Anion Gap 7 BUN 16 Creatinine 0.44 L Estimated GFR Greater than 89 Random Glucose 113 H Calcium 7.8 L Total Bilirubin 0.3 AST 292 H ALT 244 H Alkaline Phosphatase 44 L Total Creatine Kinase 6261 H CK-MB (CK-2) 31.9 H CK-MB (CK-2) % 0.5 Total Protein 6.6 Albumin 2.8 L Assessment and Plan - Plan 1. Rhabdomyolysis- improving. Continue IV fluid hydration Monitor renal function and CPK 2. Cirrhosis Hepatitis panel done at [place] negative Gastroenterology consulted, started on ursodiol Taken off methotrexate a few weeks ago f/u with GI as outpatient. 3. Lupus/RA Holding Plaquenil Continue IV Solu-Medrol 4. Neuropathy Continue gabapentin 5. Hypokalemia-replaced. Monitor BMP Discharge Planning: dc home tomorrow if stable.
[2018-07-03] MEDS: Sod Chloride 0.9% Inj 1,000 ML IV.CONT SCH ×2 (03:57→08:13)
[2018-07-03] MEDS: MethylPREDNISolone Sod Succinate Inj 40 MG/ML Vial IV.PUSH SCH (06:20)
[2018-07-03 08:04] LABS: Chloride 103 meq/L (98-107); Potassium 3.2 meq/L (3.5-5.1); Sodium 138 meq/L (136-145)
[2018-07-03 08:08] LABS: Calcium 7.8 mg/dL (8.5-10.1)
[2018-07-03 08:09] LABS: Albumin 2.9 g/dL (3.4-5.0); Anion Gap 6 meq/L (5-15); Blood Urea Nitrogen 14 mg/dL (7-18); Carbon Dioxide 28.6 meq/L (21.0-32.0); Glucose,Random 108 mg/dL (74-106)
[2018-07-03 08:12] LABS: Alanine Aminotransferase 210 U/L (10-53); Aspartate Aminotransferase 202 U/L (15-37)
[2018-07-03 08:13] LABS: Glomerular Filtration Rate Greater Than 89 mL/min (>89)
[2018-07-03 08:14] LABS: Total Protein 6.8 g/dL (6.4-8.2)
[2018-07-03 08:15] LABS: Alkaline Phosphatase 45 U/L (45-117)
[2018-07-03 08:26] LABS: Creatine Kinase 4435 U/L (26-192)
[2018-07-03 08:52] LABS: CKMB Percent 0.5 % (0.0-4.0)
[2018-07-03] MEDS ORDERED: predniSONE 20 MG Tablet PO SCH (09:00)
--- NOTE | 2018-07-03 09:03 | P.PNIM ---
Subjective Interval history: Patient seen and examined this morning. Afebrile vital signs stable. No acute events overnight. Patient's creatinine kinase has improved to 4435. She is now below 6000. She reports that she is feeling great. She still is having some lower extremity edema from all the fluids that were pumped into her body. She reports she is peeing okay and that keeping her legs elevated helps with the edema. She is hopeful for going home today informed her that she is cleared for discharge and she is very excited about this. Physical Exam Vital signs: Vital Signs 07/02/18 12:00 07/02/18 16:00 07/02/18 20:00 Temperature 97.1 F L 96.7 F L 96.9 F L Pulse Rate 69 66 64 Respiratory Rate 20 20 20 Blood Pressure 140/85 170/81 H 156/92 H Pulse Oximetry 98 100 97 07/02/18 21:06 07/03/18 00:00 07/03/18 04:00 Temperature 97.2 F L 96.5 F L Pulse Rate 55 L 70 Respiratory Rate 20 20 20 Blood Pressure 162/84 H 144/90 H Pulse Oximetry 98 99 Intake & Output 07/02/18 07/03/18 07/03/18 18:59 06:59 18:59 Intake Total 3321 / 3321 1700 / 1700 Balance 3321 / 3321 1700 / 1700 Weight 65.2 kg Intake: IV 2500 / 2500 1100 / 1100 NS Inj 1,000 ML @ 100 mls/hr IV 2500 / 2500 1100 / 1100 .CONT .Q10H [facility] Rx#:[id number] Oral 821 / 821 600 / 600 Other: # Voids 4 3 Date of Last Bowel Movement 07/02/18 # Bowel Movements 1 Narrative: GEN: Well-developed, well-nourished patient. No acute distress. CV: Regular rate and rhythm without obvious murmurs LUNGS: Clear to auscultation bilaterally. Normal respiratory effort. No wheezes , rales, rhonchi. GI: Soft, nontender, nondistended. No palpable masses. Bowel sounds WNL. EXT: 2+ pitting edema up to below knee bilaterally NEURO/PSYCH: Afocal. Awake, alert, and oriented x3. Appropriate insight and judgment. Results - Labs CBC & Chem 7: 06/30/18 05:15 07/03/18 06:50 Laboratory Results - last 24 hr 07/03/18 06:50 Sodium 138 Potassium 3.2 L Chloride 103 Carbon Dioxide 28.6 Anion Gap 6 BUN 14 Creatinine 0.47 L Estimated GFR Greater than 89 Random Glucose 108 H Calcium 7.8 L Total Bilirubin 0.4 AST 202 H ALT 210 H Alkaline Phosphatase 45 Total Creatine Kinase 4435 H CK-MB (CK-2) 24.0 H CK-MB (CK-2) % 0.5 Total Protein 6.8 Albumin 2.9 L Assessment and Plan - Plan This a 58-year-old female who was admitted for rhabdomyolysis. 1. Rhabdomyolysis- improving. Continue IV fluid hydration, encouraging oral hydration Patient's kidney function has stabilized, and her pain has improved below 6000, currently 4435 At this time patient is cleared for discharge 2. Cirrhosis Hepatitis panel done at [place] negative Gastroenterology consulted, started on ursodiol Taken off methotrexate a few weeks ago f/u with GI as outpatient. 3. Lupus/RA Holding Plaquenil Stopping IV steroids, starting p.o. prednisone at this time 4. Neuropathy Continue gabapentin 5. Hypokalemia-replaced. Monitor BMP Code Status: Full code Discharge Planning: Discharge home today
[2018-07-03] MEDS: Senna/Docusate Sodium 8.6/50 MG Tablet PO SCH (09:04)
[2018-07-03] MEDS: Gabapentin 300 MG Capsule PO SCH (09:04)
[2018-07-03] MEDS: Sodium Chloride 0.9% 2 ML Flush BID IV.FLUSH SCH (09:05)
--- NOTE | 2018-07-03 09:08 | P.DS ---
Date of admission: 06/29/18 00:34 Primary care physician: Joyce Jose MD Brief History from admission: 58-year-old female with past medical history significant for RA, lupus, AAA and neuropathy presents to the emergency department for further evaluation of her rhabdomyolysis and cirrhosis. The patient left AGAINST MEDICAL ADVICE from [facility] yesterday because she felt that she was not getting the information she deemed necessary to continue her treatment there. She went home and reports that she continued drinking water to help with her previous diagnosis of rhabdo however yesterday evening developed swollen feet, red ears, facial flushing and leg stiffness. She returned to the emergency department for further evaluation. CPK was greater than 35,000 on arrival to the emergency department. 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 She was also evaluated by gastroenterology and diagnosed with cirrhosis. Ursodiol was started and the patient has a follow-up with gastroenterology next week to discuss possible liver biopsy. Patient denies any chest pain or shortness of breath. No fever/chills. No abdominal pain. No nausea/vomiting/diarrhea. No lateralizing signs/symptoms. DS: Diagnosis - Discharge Diagnosis (1) Rhabdomyolysis Status: Acute (2) Elevated liver enzymes Status: Acute DS: Medications - Discharge Medications Prescriptions: prednisone 10 mg PO DIRECTED 30 Days tab DS: Summary Hospital Course: Patient was admitted on 06/29/18 due to rhabdomyolysis. Was also found to have elevated liver enzymes. This is likely due to muscle breakdown from the rhabdomyolysis. 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 Patient received IV fluids and was monitored until her creatinine kinase improved to below 6000 at which point she was cleared for discharge. - Time Spent with Patient Total time spent providing and/or coordinating discharge services: Less than 30 minutes - Quality: VTE Deep Vein Thrombosis/Pulmonary Embolism Present on Admission: No Exam Vital signs: Vital Signs 07/02/18 12:00 07/02/18 16:00 07/02/18 20:00 Temperature 97.1 F L 96.7 F L 96.9 F L Pulse Rate 69 66 64 Respiratory Rate 20 20 20 Blood Pressure 140/85 170/81 H 156/92 H Pulse Oximetry 98 100 97 07/02/18 21:06 07/03/18 00:00 07/03/18 04:00 Temperature 97.2 F L 96.5 F L Pulse Rate 55 L 70 Respiratory Rate 20 20 20 Blood Pressure 162/84 H 144/90 H Pulse Oximetry 98 99 Intake & Output 07/02/18 07/03/18 07/03/18 18:59 06:59 18:59 Intake Total 3321 / 3321 1700 / 1700 Balance 3321 / 3321 1700 / 1700 Weight 65.2 kg Intake: IV 2500 / 2500 1100 / 1100 NS Inj 1,000 ML @ 100 mls/hr IV 2500 / 2500 1100 / 1100 .CONT .Q10H [facility] Rx#:[id number] Oral 821 / 821 600 / 600 Other: # Voids 4 3 Date of Last Bowel Movement 07/02/18 # Bowel Movements 1 Narrative: GEN: Well-developed, well-nourished patient. No acute distress. CV: Regular rate and rhythm without obvious murmurs LUNGS: Clear to auscultation bilaterally. Normal respiratory effort. No wheezes , rales, rhonchi. GI: Soft, nontender, nondistended. No palpable masses. Bowel sounds WNL. EXT: 2+ pitting edema up to below knee bilaterally NEURO/PSYCH: Afocal. Awake, alert, and oriented x3. Appropriate insight and judgment. Results Procedures completed during hospitalization: No procedures during this hospitalization Labs on day of discharge: Labs from last 24 hours 07/03/18 06:50 Sodium 138 Potassium 3.2 L Chloride 103 Carbon Dioxide 28.6 Anion Gap 6 BUN 14 Creatinine 0.47 L Estimated GFR Greater than 89 Random Glucose 108 H Calcium 7.8 L Total Bilirubin 0.4 AST 202 H ALT 210 H Alkaline Phosphatase 45 Total Creatine Kinase 4435 H CK-MB (CK-2) 24.0 H CK-MB (CK-2) % 0.5 Total Protein 6.8 Albumin 2.9 L Discharge Plan - Discharge Disposition Patient Disposition: Discharge Home - Discharge Condition Condition: Stable - Discharge Order Discharge Orders: Discharge Order (Routine); Ordered 07/03/18 Ordered By: Juan C Alexandra - Physicians Team Primary Care Provider: Joyce Jose Attending Provider: Juan C Alexandra Other Providers: Kacey,Kacey ; Shoaib Palacios MD
[2018-07-03 09:23] VITALS: PULSE 71; TEMP 97.6; O2SAT 98
[2018-07-03 09:58] VITALS: BP 164/90
== END 2018-07-03 10:13 | disposition home health service (06) ==
LOC: NEPE 21:08 → NEDA 06-29 00:34 → NEDH 06-29 04:50 → PH3 06-29 09:13
PROVIDERS: ADMIT Hospitalist; ATTEND Hospitalist